=== PATIENT | female | born 1975 | race Caucasian/White ===

== ENCOUNTER → 2022-01-20 | Outpatient (CLI) | payer OTHER | LOC: ORTHO 13:38 | PROVIDERS: ATTEND Orthopaedic Surgery | DX: M17.12 Unilateral primary osteoarthritis, left knee (principal) | CPT/HCPCS: 99203 ==

== ENCOUNTER → 2022-02-08 | Outpatient (CLI) | payer OTHER | LOC: ORTHO 13:05 | PROVIDERS: ATTEND Orthopaedic Surgery | DX: M17.12 Unilateral primary osteoarthritis, left knee (principal) | CPT/HCPCS: 20610 ==

== ENCOUNTER → 2022-03-08 | Outpatient (CLI) | payer OTHER ==
[2022-03-08 10:51] LABS: BASOPHILS # (AUTO) 0.1 10^3/uL (0.0-0.1); BASOPHILS % (AUTO) 1 % (0-10); EOSINOPHILS # (AUTO) 0.2 10^3/uL (0.0-0.3); EOSINOPHILS % (AUTO) 3 % (0-10); HEMATOCRIT 39 % (35-52); HEMOGLOBIN 13.3 g/dL (11.5-16.0); LYMPHOCYTES # (AUTO) 1.5 10^3/uL (1.0-4.0); LYMPHOCYTES % (AUTO) 28 % (12-44); MEAN CORPUSCULAR HEMOGLOBIN 30 pg (25-34); MEAN CORPUSCULAR HGB CONC 34 g/dL (32-36); MEAN CORPUSCULAR VOLUME 88 fL (80-99); MEAN PLATELET VOLUME 9.1 fL (9.0-12.2); MONOCYTES # (AUTO) 0.4 10^3/uL (0.0-1.0); MONOCYTES % (AUTO) 7 % (0-12); NEUTROPHILS # (AUTO) 3.4 10^3/uL (1.8-7.8); NEUTROPHILS % (AUTO) 62 % (42-75); PLATELET COUNT 267 10^3/uL (130-400); WHITE BLOOD COUNT 5.6 10^3/uL (4.3-11.0)
[2022-03-08 11:09] LABS: INR 0.9 (0.8-1.4)
[2022-03-08 11:12] LABS: CALCIUM 8.9 MG/DL (8.5-10.1); CREATININE SERUM 0.75 MG/DL (0.60-1.30); POTASSIUM 3.8 MMOL/L (3.6-5.0)
--- NOTE | 2022-03-08 14:07 | Diagnostic Imaging Report ---
INDICATION: Osteoarthritis, pain COMPARISON: None available TECHNIQUE: 4 radiographs of the left knee dated 03/08/2022. FINDINGS: No acute fracture or dislocation. No destructive osseous process. Mild medial joint space narrowing. Lateral compartment is well maintained. Minimal osteophytosis. No significant knee joint effusion. Probable narrowing of the lateral patellofemoral joint space, though this is not optimally visualized secondary to positioning. IMPRESSION: No acute osseous abnormality with mild degenerative changes. Dictated by: Dictated on workstation # [id number]
--- NOTE | 2022-03-08 14:31 | Diagnostic Imaging Report ---
INDICATION: Preoperative evaluation, knee pain. COMPARISON: None available. TECHNIQUE: Two radiographs of the chest dated 03/08/2022. FINDINGS: The cardiac silhouette is within normal limits in size. No significant pulmonary vascular congestion. The lungs are clear. No pleural effusion. No pneumothorax. Surgical clips within the upper abdomen. No acute osseous abnormality. IMPRESSION: No acute cardiopulmonary abnormality. Dictated by: Dictated on workstation # [id number]
== END ==
LOC: ORTHO 09:48
PROVIDERS: ATTEND Orthopaedic Surgery
DX: M17.12 Unilateral primary osteoarthritis, left knee (principal)
CPT/HCPCS: 71046; 73564; 80048; 85025; 85610; 85730; 93005; G0463; 36415; 99213

== ENCOUNTER → 2022-03-15 | Outpatient (CLI) | payer OTHER ==
[~2022-03-15] VITALS: Ht 170.2 cm; Wt 109.0 kg
[~2022-03-15] MED LIST: LEVO5TAB28 PO; THYR240T PO
== END | disposition home or self-care (01) ==
LOC: PREOP 05:44
PROVIDERS: ATTEND Orthopaedic Surgery
DX: Z01.818 Encounter for other preprocedural examination (principal)

== ENCOUNTER 2022-03-21 08:27 | Observation (INO) | payer OTHER ==
[2022-03-21] VITALS (13 sets, daily range): BP systolic 118–181; BP diastolic 66–113
[~2022-03-21] VITALS: Ht 170.2 cm; Wt 121.1 kg
[2022-03-21] MEDS ORDERED: ceFAZolin INJECTION 2,000 MG in NS (IVPB) 50 ML IV ONE (08:45)
[2022-03-21] MEDS ORDERED: SODIUM CHLORIDE 0.9% IRRIGATIO 150 ML, TRANEXAMIC ACID INJECTION 3,000 MG IR ONE ×2 (09:00)
[2022-03-21] MEDS: LACTATED RINGERS 1,000 ML IV PRN ×2 (09:11→11:16)
[2022-03-21] MEDS ORDERED: MIDAZOLAM 2 MG/2 ML (VERSED) VIAL ONE (09:22)
[2022-03-21] MEDS ORDERED: fentaNYL INJ 100 MCG/2 ML AMP ONE ×3 (09:22→12:58)
--- NOTE | 2022-03-21 09:43 | Progress Note-Pre Operative ---
Pre-Operative Progress Note Date of Available H&P: Mar 08, 2022 Date H&P Reviewed: Mar 21, 2022 Time H&P Reviewed: 09:30 History & Physical: H&P Reviewed, Patient Examed, No changes noted Pre-Operative Diagnosis: Left Knee Primary Osteoarthritis PREEIT WILLSON MD Mar 21, 2022 09:43
[2022-03-21] MEDS ORDERED: LIDOCAINE PF 2% 5 ML (XYLOCAINE) VIAL ONE (10:02)
[2022-03-21] MEDS ORDERED: ONDANSETRON 4 MG/2 ML (SDV) Z0FRAN ONE (10:02)
[2022-03-21] MEDS ORDERED: proPOfol 200 MG/20 ML (DIPRIVAN) VIAL IV ONE ×2 (10:02→10:08)
[2022-03-21] MEDS ORDERED: ROPIVACAINE 5MG/ML 30ML VIAL ONE (10:02)
[2022-03-21] MEDS ORDERED: LABETALOL HCL 20 MG/4 ML VIAL ONE ×2 (10:54→12:36)
[2022-03-21] MEDS ORDERED: SEVOFLURANE (ULTANE) 15 ML INHAL SOLN ONE (11:49)
--- NOTE | 2022-03-21 12:01 | Operative Report - Ortho ---
Operative Report Surgeon (s)/Contracts Advisor (s) Surgeon PREETI WILLSON MD Contracts Advisor n/a Pre-Operative Diagnosis Left Knee Primary Osteoarthritis Post-Operative Diagnosis same Operative Report Date of Procedure: Mar 21, 2022 Name of Procedure Performed: Left Total Knee Arthroplasty Description & Findings After obtaining informed consent and marking the patient in the preoperative holding area, the patient did receive IV antibiotics. Patient was taken to the operating room and anesthesia was induced. Surgical timeout was taken. The left lower extremity was prepped and draped in the usual sterile fashion. Incision was made and carried down to fascia. Arthrotomy was performed on the medial side of the patella. Patella was retracted laterally and knee was flexed. Found to have circumferential osteophtye around the distal femur as well as exposed bone in the medial compartment. Hole was made in the distal femur for the intramedullary distal femoral cutting guide. Resection was made then the femur was sized as a 3. 4-in-1 block for a size [address]. Anterior cut was made and there was no notch. Posterior cut was made followed by the chamfers. Box cut was performed. Lug holes were drilled. Attention was turned to the tibial side, extramedullary tibial guide was put into place and aligned with the tibial crest. It was set to take 2 mm off of the affected medial side. Drop althea was used to confirm alignment. Resection was made and was parallel to the joint line. Tibial bone block was removed. Lamina food preparation supervisor was put into place and the menisci and posterior osteophytes were removed. The knee was trialed with a size 3 femur and a size 3 tibia with a 9 mm poly trial. It was found to come out to full extension and flexed beyond 120 degrees. It was stable to varus and valgus stress throughout its range of motion. This was accepted. Knee was brought out into extension and the patella was measured and noted to be too thin for arthroplasty; osteophytes were removed from around the perimeter of the patella. Patella tracked well through the trochlear groove of the femur. Trial implants were removed. Tibial tray was pinned and punched. Tibial press fit guide was placed and holes were drilled. The cut bone surfaces were lavaged with pulsatile normal saline. Implants were opened and assembled on the back table. A size 3 press fit tibial component was impacted into place. A size 3 press fit femoral component was impacted into place. Tibial tray was lavaged with saline. A 9 mm thick polyethylene component was locked into placed and the locking mechanism was chec ked. Knee was brought into extension. Betadine soak was performed and then, the knee was irrigated with normal saline. Tranexamic acid was applied for hemostasis. The knee was once again trialed; found to come to full extension, flexed beyond 120 degrees, and was stable to varus and valgus stress. Tourniquet was dropped and electrocautery was used for hemostasis. Fascial layer was closed with #2 Stratafix. The subcutaneous layer was closed with 2-0 Vicryl. The skin was closed with a running subcuticular 3-0 V-loc. Wound was dressed with steri- strips, xeroform, 4x4s, ABD, webril, and MELISSA wrap. Patient tolerated the procedure well and was stable to the recovery room. Anesthesia Type General plus Regional Estimated Blood Loss 150 mL Specimen(s) collected/removed None PREETI WILLSON MD Mar 21, 2022 12:01
[2022-03-21] MEDS ORDERED: HYDROmorphone 2 MG/ML VIAL (DILAUDID) ONE (12:08)
[2022-03-21] MEDS ORDERED: ONDANSETRON 4 MG/2 ML (SDV) Z0FRAN IVP PRN (12:15)
[2022-03-21] MEDS ORDERED: BISACODYL 5 MG (DULCOLAX) TABLET PO PRN (12:15)
[2022-03-21] MEDS ORDERED: ONDANSETRON 4 MG/2 ML (SDV) Z0FRAN IV PRN (12:15)
[2022-03-21] MEDS ORDERED: fentaNYL INJ 100 MCG/2 ML AMP IVP ONE (12:15)
[2022-03-21] MEDS ORDERED: MILK OF MAGNESIA 400 MG/5 ML 30 ML UDC PO PRN (12:15)
[2022-03-21] MEDS ORDERED: HYDROmorphone 2 MG/ML VIAL (DILAUDID) IV ONE (12:15)
[2022-03-21] MEDS ORDERED: ACETAMINOPHEN 500 MG TAB (TYLENOL) PO PRN (12:15)
[2022-03-21] MEDS: LABETALOL HCL 20 MG/4 ML VIAL IV PRN ×4 (12:40→13:03)
--- NOTE | 2022-03-21 13:23 | Diagnostic Imaging Report ---
CLINICAL HISTORY: Postop left total knee arthroplasty. COMPARISON: 03/08/2022. TECHNIQUE: 2 views of the left knee. FINDINGS: Postsurgical changes of left total knee arthroplasty are visualized. The femoral and tibial components are well seated. No periprosthetic fracture. IMPRESSION: 1. Expected postsurgical changes of left total knee arthroplasty. Dictated by: Dictated on workstation # [id number]
--- NOTE | 2022-03-21 13:59 | Physical Therapy Progress Note ---
Therapy Progress Note PT attempted to evaluation patient, however, patient adamantly declined stating, "I'm not doing anything until I get pain medicine." PT attempted to educate patient on importance of actively participating with therapy and placing CPM to increase ROM and circulation. Patient continued to decline. RN is aware. Will attempt later today. 1 ref ALFREDITO THOMAS PT Mar 21, 2022 13:59
[2022-03-21] MEDS: HYDROmorphone 2 MG/ML VIAL (DILAUDID) IV PRN ×3 (14:12→22:26)
[2022-03-21] MEDS: NS IV 1000 ML 1,000 ML IV SCH (14:26)
--- NOTE | 2022-03-21 14:54 | Physical Therapy Evaluation ---
PT Evaluation-General Medical Diagnosis Admission Date March 21, 2022 Medical Diagnosis: left TKR Onset Date: Mar 21, 2022 Therapy Diagnosis Therapy Diagnosis: impaired mobility/weakness Precautions Precautions/Isolations: Standard Precautions Weight Bear Status Right Lower Extremity: Right Full Weight Bearing Left Lower Extremity: Left Weight Bearing/Tolerated Referral Physician: Ubaldo Reason for Referral: Evaluation/Treatment Medical History Current History s/p elective left TKR Reviewed History: Yes Social History Home: Single Level Current Living Status: Spouse Prior Prior Level of Function SCALE: Activities may be completed with or without assistive devices. 9-Tjdeeiqcbn-ejvzvik completes the activity by him/herself with no assistance from a helper. 5-Set-up or Clean-up Assistance-helper sets up or cleans up; patient completes activity. [place] assists only prior to or following the activity. 4-Supervision or Touching Assistance-helper provides verbal cues and/or touching/steadying and/or contact guard assistance as patient completes activity. Assistance may be provided throughout the activity or intermittently. 3-Partial/Moderate Assistance-helper does LESS THAN HALF the effort. [place] lifts, holds or supports trunk or limbs, but provides less than half the effort. 2-Substantial/Maximal Assistance-helper does MORE THAN HALF the effort. [place] lifts or holds trunk or limbs and provides more than half the effort. 1-Qkcabtrip-yzsfiu does ALL the effort. Patient does none of the effort to complete the activity. Or, the assistance of 2 or more helpers is required for the patient to complete the activity. If activity was not attempted, code reason: 7-Patient Refused. 9-Not Applicable-not attempted and the patient did not perform the activity before the current illness, exacerbation or injury. 10-Not Attempted due to Environmental Limitations-(lack of equipment, weather restraints, etc.). 88-Not Attempted due to Medical Conditions or Safety Concerns. Bed Mobility: 6 Transfers (B,C,W/C): 6 Gait: 6 Stairs: 6 Indoor Mobility (Ambulation): Independent Stairs: Independent Prior Devices Use: None PT Evaluation-Current Subjective Patient agrees to PT. Pain Numeric Pain Scale: 8 Location: Left Location Body Site: Knee Pain Description: Acute Objective Patient Orientation: Normal For Age Attachments: Espinal Catheter, IV ROM/Strength ROM Lower Extremities left knee flexion 70 degrees/extension 10 degrees; right LE WFL Strength Lower Extremities left LE 3-/5 grossly/right LE 4/5 Integumentary/Posture Bowel Incontinence: No Bladder Incontinence: Espinal Cath Posture WFL Neuromuscular (Tone, Coordination, Reflexes) grossly intact Sensory Vision: Functional Hearing: Functional Transfers Sit to Lying (QC): 3 Lying to Sitting/Side of Bed(Q: 3 Gait Does the Patient Walk?: No and Walking Goal IS indicated Balance Sitting Static: Normal Sitting Dynamic: Normal Assessment/Needs Patient will benefit from skilled PT to address functional strength and mobility to improve current LOF. Patient is currently limited by left knee pain. Rehab Potential: Fair PT Campus Security Officer Goals Usp Goals PT Usp Goals Time Frame: Mar 26, 2022 Roll Left & Right (QC): 6 Sit to Lying (QC): 6 Lying-Sitting on Side/Bed(QC): 6 Sit to Stand (QC): 6 Chair/Hjf-tt-Laswz Xfer(QC): 6 Toilet Transfer (QC): 6 Walk 10 feet (QC): 6 Walk 50ft with 2 Turns (QC): 6 Walk 150 ft (QC): 6 PT Plan Problem List Problem List: Activity Tolerance, Functional Strength, Safety, Balance, Gait, Transfer, Bed Mobility, ROM Treatment/Plan Treatment Plan: Continue Plan of Care Treatment Plan: Bed Mobility, Education, Functional Activity Diana, Functional Strength, Gait, Safety, Therapeutic Exercise, Transfers Treatment Duration: Mar 26, 2022 Frequency: 11 times per week Estimated Hrs Per Day: .5 hour per day Patient and/or Family Agrees t: Yes Time/GCodes Time In: 1430 Time Out: 1445 Total Billed Treatment Time: 15 Total Billed Treatment 1 visit [facility] 15 min ALFREDITO THOMAS PT Mar 21, 2022 14:54
--- NOTE | 2022-03-21 15:39 | Physical Therapy Progress Note ---
Therapy Progress Note Patient with HOB elevated upon PT arrival, nurse in the room discussing pain medication. Patient agreeable to CPM. CPM placed and adjusted to fit patients left LE length. Settings of CPM were from 0 degrees extension to 50 degrees flexion. Patient unable to tolerate 52 degrees flexion. Speed set to level 3 and time set to 2 hours. GASTROINTESTINAL TECHNICIAN in the room upon application of the CPM. Patient agreeable to settings and has call light in reach, in the room upon PT departure. Patient was advised to use the CPM 2 hours, 3-4 times daily. KIRSTIN MEDRANO PT Mar 21, 2022 15:39
[2022-03-21] MEDS ORDERED: ROPI0.253 PO (16:05)
[2022-03-21] MEDS: ASPIRIN E.C. 81 MG (ECOTRIN) TAB PO SCH (18:43)
[2022-03-21] MEDS ORDERED: FLU QUADRIvalent (6 months+) 60 mcg/0.5 ml 2022-23 (Fluzone) IM ONE (19:45)
[2022-03-21] MEDS ORDERED: ceFAZolin INJECTION 2,000 MG in NS (IVPB) 50 ML IV SCH (21:00)
[2022-03-21] MEDS: ceFAZolin INJECTION 2,000 MG in NS (IVPB) 50 ML IV SCH (22:18)
[2022-03-21] MEDS: DOCUSATE SODIUM 100 MG (COLACE) CAP PO SCH (22:18)
[2022-03-21] MEDS: rOPINIRole 0.25 MG (REQUIP) TAB PO SCH (22:19)
[2022-03-21] MEDS: CELECOXIB 100 MG (CeleBREX) CAP PO SCH (22:19)
[2022-03-22] VITALS (7 sets, daily range): BP systolic 94–152; BP diastolic 52–81
[2022-03-22] MEDS: NS IV 1000 ML 1,000 ML IV SCH (00:51)
[2022-03-22] MEDS: HYDROmorphone 2 MG/ML VIAL (DILAUDID) IV PRN ×5 (03:43→17:10)
[2022-03-22] MEDS: ceFAZolin INJECTION 2,000 MG in NS (IVPB) 50 ML IV SCH (04:01)
[2022-03-22 05:53] LABS: HEMOGLOBIN 12.9 g/dL (11.5-16.0)
[2022-03-22] MEDS: MULTIVIT W/MINERALS TAB (THERAGRAN M) PO SCH (06:09)
--- NOTE | 2022-03-22 08:23 | Progress Note - Ortho ---
Progress Note Subjective Date of Exam 03/22/22 Chief Complaint POD #1 L TKA HPI/Events since last exam having difficulty with pain, block wore off early this AM Review of Systems - Allergies: Coded Allergies: erythromycin base (Unverified Allergy, Unknown, 03/15/22) morphine (Unverified Allergy, Unknown, 03/15/22) Home Meds Reported Medications Ropinirole HCl (Ropinirole HCl) 0.25 Mg Tablet, 0.25 MG PO HS, TAB 03/21/22 Levocetirizine Dihydrochloride (Xyzal) 5 Mg Tablet, 5 MG PO DAILY, TAB 03/15/22 Thyroid,Pork (Th[place]ton Thyroid) 240 Mg Tablet, 240 MG PO DAILY, TAB 03/15/22 Objective Exam L Knee: Dressing C/D/I, +DF of ankle, no s/s of DVT Vital Signs Vital Signs Date Time Temp Pulse Resp B/P (MAP) Pulse Ox O2 Delivery O2 Flow Rate FiO2 03/22/22 08:00 37.1 101 18 151/81 (104) 95 Room Air 03/22/22 04:24 37.5 99 16 146/78 (100) 98 Room Air 03/22/22 00:47 37.7 99 16 143/74 (97) 94 Room Air 03/21/22 19:03 37.6 97 18 134/66 (88) 96 Room Air 8.00 03/21/22 18:48 Room Air 03/21/22 16:00 37.5 95 20 146/81 (102) 97 Room Air 03/21/22 13:10 36.3 11 151/81 (104) 94 Room Air 03/21/22 13:10 Room Air 03/21/22 13:00 14 176/108 (130) 97 Room Air 03/21/22 12:56 16 181/107 (131) 97 Room Air 03/21/22 12:55 Room Air 03/21/22 12:50 15 176/106 (129) 95 Room Air 03/21/22 12:44 13 96 Room Air 03/21/22 12:40 36.3 19 171/101 (124) 100 Room Air 03/21/22 12:40 Room Air 03/21/22 12:30 15 174/108 (130) 100 OxyMask 8.00 03/21/22 12:25 OxyMask 3.00 03/21/22 12:20 16 163/113 (130) 100 OxyMask 8.00 03/21/22 12:10 9 164/102 (122) 100 OxyMask 8.00 03/21/22 12:10 OxyMask 8.00 03/21/22 12:00 19 131/87 (102) 97 OxyMask 8.00 03/21/22 12:00 36.6 86 18 140/76 (97) 96 Room Air 03/21/22 11:53 36.2 16 118/78 (91) 96 OxyMask 8.00 03/21/22 11:53 OxyMask 8.00 03/21/22 09:19 36.4 84 18 139/87 (104) 97 Room Air I & O 03/22/22 07:00 Intake Total 2690 ml Output Total 3370 ml Balance -680 ml Lab Results Laboratory Tests 03/22/22 05:20: Hemoglobin 12.9, Hematocrit 39 Imaging 2 postop views of the left knee demonstrated total knee arthroplasty with the components in good position Assessment and Plan Assessment Left Knee Primary OA s/p L TKA Problem List Left Knee Primary OA s/p L TKA Plan PT/OT DVT Prophylaxis Pain Control Final Diagonsis Left Knee Primary OA s/p L TKA Level of the visit: Level 3 (postop) PREETI WILLSON MD Mar 22, 2022 08:23
[2022-03-22] MEDS: THYROID (ARMOUR) 60 MG TABLET PO SCH (08:38)
[2022-03-22] MEDS: DOCUSATE SODIUM 100 MG (COLACE) CAP PO SCH ×2 (08:38→21:17)
[2022-03-22] MEDS: ASPIRIN E.C. 81 MG (ECOTRIN) TAB PO SCH ×2 (08:38→17:10)
[2022-03-22] MEDS: LORATADINE (CLARITIN) 10 MG TAB PO SCH (08:38)
[2022-03-22] MEDS: CELECOXIB 100 MG (CeleBREX) CAP PO SCH ×2 (08:38→21:17)
[2022-03-22] MEDS: CYCLOBENZAPRINE 10 MG (FLEXERIL) TAB PO PRN ×3 (08:42→21:17)
[2022-03-22] MEDS: KETOROLAC 30 MG/ML VIAL IVP PRN ×3 (08:42→21:17)
[2022-03-22] MEDS ORDERED: LEVOCETIRIZINE DIHYDROCHLORIDE 5 MG PO SCH (09:00)
[2022-03-22] MEDS ORDERED: THYROID PORK 240 MG PO SCH (09:00)
--- NOTE | 2022-03-22 09:58 | Anesthesia-General Post-Op ---
General Patient Condition Mental Status/LOC: Same as Preop Cardiovascular: Satisfactory Nausea/Vomiting: Absent Respiratory: Satisfactory Pain: Controlled Complications: Absent Post Op Complications Complications None Follow Up Care/Instructions Patient Instructions None needed. Anesthesia/Patient Condition Patient Condition Patient is doing well, no complaints, stable vital signs, no apparent adverse anesthesia problems. No complications reported per nursing. MAYTE CSHNEIDER CRNA Mar 22, 2022 09:58
--- NOTE | 2022-03-22 10:08 | Physical Therapy Daily Note ---
PT Daily Note-Current Subjective Patient agrees to PT. Rates left knee pain 10/10. Dr. Conner in for assessment Pain Numeric Pain Scale: 10-Worst Possible Pain Location: Left Location Body Site: Knee Pain Description: Acute Section J - Health Conditions 1. Rarely or not at all 2. Occasionally 3. Frequently 4. Almost constantly 8. Unable to answer Pain Effect on Sleep: 4 Pain Interference with Therapy: 4 Pain Interference w/Day-to-Day: 4 Mental Status Patient Orientation: Normal For Age Attachments: IV Transfers SCALE: Activities may be completed with or without assistive devices. 6-[place]-odehrlf completes the activity by him/herself with no assistance from a helper. 5-Set-up or Clean-up Assistance-helper sets up or cleans up; patient completes activity. [place] assists only prior to or following the activity. 4-Supervision or Touching Assistance-helper provides verbal cues and/or touching/steadying and/or contact guard assistance as patient completes activity. Assistance may be provided throughout the activity or intermittently. 3-Partial/Moderate Assistance-helper does LESS THAN HALF the effort. [place] lifts, holds or supports trunk or limbs, but provides less than half the effort. 2-Substantial/Maximal Assistance-helper does MORE THAN HALF the effort. [place] lifts or holds trunk or limbs and provides more than half the effort. 0-Pvzssmkbu-xydrcu does ALL the effort. Patient does none of the effort to complete the activity. Or, the assistance of 2 or more helpers is required for the patient to complete the activity. If activity was not attempted, code reason: 7-Patient Refused. 9-Not Applicable-not attempted and the patient did not perform the activity before the current illness, exacerbation or injury. 10-Not Attempted due to Environmental Limitations-(lack of equipment, weather restraints, etc.). 88-Not Attempted due to Medical Conditions or Safety Concerns. Lying to Sitting/Side of Bed(Q: 4 Sit to Stand (QC): 4 Chair/Rye-my-Yaqoy Xfer(QC): 4 Toilet Transfer (QC): 4 Weight Bearing Right Lower Extremity: Right Full Weight Bearing Left Lower Extremity: Left Weight Bearing/Tolerated Gait Training Distance: 50' Walk 10 feet (QC): 4 Walk 50 ft with 2 Turns(QC): 4 Gait Assistive Device: FWW very slow, antalgic gait sequence Exercises Supine Ex: Ankle pumps, Quad Set, Heel Slides, Straight leg raise Supine Reps: 15 (AAROM (lacks 30 degrees extension due to pain)) Seated Therapy Exercises: Long arc quads Seated Reps: 15 Assessment Patient appears to self limit due to left knee pain. is aware of uncontrolled left knee pain. PT educated patient on importance of actively performing exercises PRN to increase ROM and activity. Patient and spouse voiced understanding. PT Electronic Parts Designer Goals Electronic Parts Designer Goals PT Mcc Goals Time Frame: Mar 26, 2022 Roll Left & Right (QC): 6 Sit to Lying (QC): 6 Lying-Sitting on Side/Bed(QC): 6 Sit to Stand (QC): 6 Chair/Hbc-kf-Kelep Xfer(QC): 6 Toilet Transfer (QC): 6 Walk 10 feet (QC): 6 Walk 50ft with 2 Turns (QC): 6 Walk 150 ft (QC): 6 PT Plan Treatment/Plan Treatment Plan: Continue Plan of Care Treatment Plan: Bed Mobility, Education, Functional Activity Diana, Functional Strength, Gait, Safety, Therapeutic Exercise, Transfers Treatment Duration: Mar 26, 2022 Frequency: 11 times per week Estimated Hrs Per Day: .5 hour per day Patient and/or Family Agrees t: Yes Time Time In: 800 Time Out: 832 Total Billed Treatment Time: 32 Total Billed Treatment 1 visit EX 18 min GT 14 min ALFREDITO THOMAS PT Mar 22, 2022 10:08
--- NOTE | 2022-03-22 11:29 | Occupational Therapy Eval ---
OT Evaluation-General/PLF Medical Diagnosis Admission Date Medical Diagnosis: left TKR Onset Date: Mar 21, 2022 Therapy Diagnosis Therapy Diagnosis: decreased ADL status Precautions Precautions/Isolations: Fall Prevention, Standard Precautions Referral Physician: Ubaldo Referral Reason: Evaluation/Treatment Medical History Current History s/p L TKA 03/22/22 Social History Home: Single Level Current Living Status: Spouse ADL-Prior Level of Function SCALE: Activities may be completed with or without assistive devices. 1-Pwgxfvuutq-audtdal completes the activity by him/herself with no assistance from a helper. 5-Set-up or Clean-up Assistance-helper sets up or cleans up; patient completes activity. [place] assists only prior to or following the activity. 4-Supervision or Touching Assistance-helper provides verbal cues and/or touching/steadying and/or contact guard assistance as patient completes activity. Assistance may be provided throughout the activity or intermittently. 3-Partial/Moderate Assistance-helper does LESS THAN HALF the effort. [place] lifts, holds or supports trunk or limbs, but provides less than half the effort. 2-Substantial/Maximal Assistance-helper does MORE THAN HALF the effort. [place] lifts or holds trunk or limbs and provides more than half the effort. 7-Fvddrnkrc-jaxqio does ALL the effort. Patient does none of the effort to complete the activity. Or, the assistance of 2 or more helpers is required for the patient to complete the activity. If activity was not attempted, code reason: 7-Patient Refused. 9-Not Applicable-not attempted and the patient did not perform the activity before the current illness, exacerbation or injury. 10-Not Attempted due to Environmental Limitations-(lack of equipment, weather restraints, etc.). 88-Not Attempted due to Medical Conditions or Safety Concerns. ADL PLOF Comments Pt reports IND with ADLs and functional mobility at [facility]. 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 Self Care: Independent Functional Cognition: Independent OT Current Status Subjective Pt in recliner, agreeable to OT tx. Mental Status/Objective Patient Orientation: Person, Place, Time, Situation Attachments: IV Current Upper Extremity ROM WFL Upper Extremity Strength WFL ADL-Treatment Eating (QC): 6 Oral Hygiene (QC): 6 Lower Body Dressing (QC): 2 On/Off Footwear (QC): 1 Toileting Hygiene (QC): 6 Other Treatments Pt in recliner, provided information about PLOF and home set up. Pt requests to use toilet, able to use FWW to transfer into bathroom to complete toileting independently. Pt then stood at sink to wash hands independently. Pt used FWW to perform functional mobility around room, into hallway, and back to recliner. Pt states her assisted her with footwear and LE dressing today and he will be able to assist her with this at home. Post tx, pt in recliner, call light in reach and all needs met. Education OT Patient Education: Correct positioning, Modified ADL techniques, Progress toward Goal/Update tx plan, Purpose of tx/functional activities Teaching Recipient: Patient Teaching Methods: Discussion Response to Teaching: Verbalize Understanding OT Vp Goals Vp Goals 1=Demonstrate adherence to instructed precautions during ADL tasks. 2=Patient will verbalize/demonstrate understanding of assistive devic es/modifications for ADL. 3=Patient will improve strength/tolerance for activity to enable patient to perform ADL's. OT Education/Plan Problem List/Assessment Assessment: No Skilled OT Needs ID'd No skilled OT services indicated at this time, as pt is at her PLOF with all ADLs except LBD. Pt states will assist her with this at home, and declines further OT services at this time. D/C from OT services at this time per pt request. Discharge Recommendations Plan/Recommendations: Discharge/Goals Met Treatment Plan/Plan of Care Patient would benefit from OT for education, treatment and training to promote independence in ADL's, mobility, safety and/or upper extremity function for ADL's. Plan of Care: ADL Retraining, Functional Mobility Treatment Duration: Mar 22, 2022 Frequency: 1 time per week (eval only) Estimated Hrs Per Day: .25 hour per day Rehab Potential: Fair Time/GCodes Start Time: 10:55 Stop Time: 11:20 Total Time Billed (hr/min): 25 Billed Treatment Time 1, EVL (10'), ADL (15') ERIC BURTON OT Mar 22, 2022 11:29
--- NOTE | 2022-03-22 14:15 | Physical Therapy Daily Note ---
PT Daily Note-Current Subjective Patient reports left knee pain is controlled at this time. Pain Numeric Pain Scale: 5-Moderate Pain Location: Left Location Body Site: Knee Pain Description: Acute Section J - Health Conditions 1. Rarely or not at all 2. Occasionally 3. Frequently 4. Almost constantly 8. Unable to answer Pain Effect on Sleep: 3 Pain Interference with Therapy: 3 Pain Interference w/Day-to-Day: 3 Transfers SCALE: Activities may be completed with or without assistive devices. 4-Lplqtitimj-paaubus completes the activity by him/herself with no assistance from a helper. 5-Set-up or Clean-up Assistance-helper sets up or cleans up; patient completes activity. [place] assists only prior to or following the activity. 4-Supervision or Touching Assistance-helper provides verbal cues and/or touching/steadying and/or contact guard assistance as patient completes activity. Assistance may be provided throughout the activity or intermittently. 3-Partial/Moderate Assistance-helper does LESS THAN HALF the effort. [place] lifts, holds or supports trunk or limbs, but provides less than half the effort. 2-Substantial/Maximal Assistance-helper does MORE THAN HALF the effort. [place] lifts or holds trunk or limbs and provides more than half the effort. 2-Kpnxixtdv-biuggg does ALL the effort. Patient does none of the effort to complete the activity. Or, the assistance of 2 or more helpers is required for the patient to complete the activity. If activity was not attempted, code reason: 7-Patient Refused. 9-Not Applicable-not attempted and the patient did not perform the activity before the current illness, exacerbation or injury. 10-Not Attempted due to Environmental Limitations-(lack of equipment, weather restraints, etc.). 88-Not Attempted due to Medical Conditions or Safety Concerns. Sit to Stand (QC): 6 Weight Bearing Right Lower Extremity: Right Full Weight Bearing Left Lower Extremity: Left Weight Bearing/Tolerated Gait Training Distance: 225' Walk 10 feet (QC): 5 Walk 50 ft with 2 Turns(QC): 5 Walk 150 ft (QC): 5 Gait Assistive Device: FWW much improved gait sequence/antalgic, reciprocal pattern Exercises Seated Therapy Exercises: Ankle pumps, Long arc quads Seated Reps: 15 Assessment Patient requires time and encouragement to complete exercises due to left knee pain. Patient does report pain is more controlled. PT to increase activity as tolerated by patient and patient to dismiss to home tomorrow after PT. PT Circular Ripsaw Operator Goals Circular Ripsaw Operator Goals PT Senior Living Goals Time Frame: Mar 26, 2022 Roll Left & Right (QC): 6 Sit to Lying (QC): 6 Lying-Sitting on Side/Bed(QC): 6 Sit to Stand (QC): 6 Chair/Pod-xo-Yrgnl Xfer(QC): 6 Toilet Transfer (QC): 6 Walk 10 feet (QC): 6 Walk 50ft with 2 Turns (QC): 6 Walk 150 ft (QC): 6 PT Plan Treatment/Plan Treatment Plan: Continue Plan of Care Treatment Plan: Bed Mobility, Education, Functional Activity Diana, Functional Strength, Gait, Safety, Therapeutic Exercise, Transfers Treatment Duration: Mar 26, 2022 Frequency: 11 times per week Estimated Hrs Per Day: .5 hour per day Patient and/or Family Agrees t: Yes Time Time In: 1315 Time Out: 1338 Total Billed Treatment Time: 23 Total Billed Treatment 1 visit EX 8 min GT 15 min ALFREDITO THOMAS PT Mar 22, 2022 14:15
[2022-03-22] MEDS: rOPINIRole 0.25 MG (REQUIP) TAB PO SCH (21:17)
[2022-03-23 00:04] VITALS: BP 120/70
[2022-03-23 03:20] VITALS: BP 121/65
[2022-03-23] MEDS: CYCLOBENZAPRINE 10 MG (FLEXERIL) TAB PO PRN ×2 (03:21→12:10)
[2022-03-23] MEDS: KETOROLAC 30 MG/ML VIAL IVP PRN ×2 (03:22→12:09)
[2022-03-23] MEDS: MULTIVIT W/MINERALS TAB (THERAGRAN M) PO SCH (06:01)
[2022-03-23 06:12] LABS: HEMOGLOBIN 11.3 g/dL (11.5-16.0)
[2022-03-23] MEDS: HYDROmorphone 2 MG/ML VIAL (DILAUDID) IV PRN (08:19)
[2022-03-23] MEDS: DOCUSATE SODIUM 100 MG (COLACE) CAP PO SCH (08:19)
[2022-03-23] MEDS: CELECOXIB 100 MG (CeleBREX) CAP PO SCH (08:20)
[2022-03-23] MEDS: THYROID (ARMOUR) 60 MG TABLET PO SCH (08:20)
[2022-03-23] MEDS: LORATADINE (CLARITIN) 10 MG TAB PO SCH (08:20)
[2022-03-23] MEDS: ASPIRIN E.C. 81 MG (ECOTRIN) TAB PO SCH (08:20)
[2022-03-23 08:21] VITALS: BP 133/85
--- NOTE | 2022-03-23 10:27 | Physical Therapy Daily Note ---
PT Daily Note-Current Subjective Pt. agrees to Rx stating she feels confident she can manage at home and hopes to go home today. at bedside and supportive. Pt. c/o pain at 8/10 however her functional mobility and laughter dont align with that high pain c/o Pain Numeric Pain Scale: 8 Location: Left Location Body Site: Knee Pain Description: Throbbing Section J - Health Conditions 1. Rarely or not at all 2. Occasionally 3. Frequently 4. Almost constantly 8. Unable to answer Pain Effect on Sleep: 1 Pain Interference with Therapy: 1 Pain Interference w/Day-to-Day: 2 Mental Status Patient Orientation: Normal For Age Attachments: Other-See Comments (polar pack) Transfers SCALE: Activities may be completed with or without assistive devices. 2-Nfjoelgttx-xlzdwml completes the activity by him/herself with no assistance from a helper. 5-Set-up or Clean-up Assistance-helper sets up or cleans up; patient completes activity. [place] assists only prior to or following the activity. 4-Supervision or Touching Assistance-helper provides verbal cues and/or touching/steadying and/or contact guard assistance as patient completes activity. Assistance may be provided throughout the activity or intermittently. 3-Partial/Moderate Assistance-helper does LESS THAN HALF the effort. [place] lifts, holds or supports trunk or limbs, but provides less than half the effort. 2-Substantial/Maximal Assistance-helper does MORE THAN HALF the effort. [place] lifts or holds trunk or limbs and provides more than half the effort. 2-Rmzezxjup-igpccg does ALL the effort. Patient does none of the effort to complete the activity. Or, the assistance of 2 or more helpers is required for the patient to complete the activity. If activity was not attempted, code reason: 7-Patient Refused. 9-Not Applicable-not attempted and the patient did not perform the activity before the current illness, exacerbation or injury. 10-Not Attempted due to Environmental Limitations-(lack of equipment, weather restraints, etc.). 88-Not Attempted due to Medical Conditions or Safety Concerns. Roll Left & Right (QC): 6 Sit to Lying (QC): 4 Lying to Sitting/Side of Bed(Q: 6 Sit to Stand (QC): 6 Chair/Zzz-ug-Hefcr Xfer(QC): 6 Toilet Transfer (QC): 6 Weight Bearing Right Lower Extremity: Right Full Weight Bearing Left Lower Extremity: Left Weight Bearing/Tolerated Gait Training Does the Patient Walk?: Yes Walk 10 feet (QC): 6 Walk 50 ft with 2 Turns(QC): 6 Walk 150 ft (QC): 6 Gait Persons Needed: 0 Gait Assistive Device: FWW pt. states she will want to progress to crutches as as she can, used them just prior to this, pt. was trained in equal step length, step through and did fine Stair Training pt. uses crutches at home on steps as she does not have rails, assists pt as well, talked through the sequence with good understanding Exercises Supine Ex: Ankle pumps, Quad Set, Heel Slides, Straight leg raise (assisted left) Supine Reps: 15 Seated Therapy Exercises: Ankle pumps, Sit to stand, Hamstring Curls Seated Reps: 12 Treatments as above, in for Rx during gait and then after, removed outer dressing to observe very clean incision and butterflys, pt, to be DCd to home with instruction Assessment Current Status: Good Progress 10 to 80 deg active ROM PT Acquisition Lead Goals Acquisition Lead Goals PT Prison Goals Time Frame: Mar 26, 2022 Roll Left & Right (QC): 6 Sit to Lying (QC): 6 Lying-Sitting on Side/Bed(QC): 6 Sit to Stand (QC): 6 Chair/Juk-qx-Qrgdm Xfer(QC): 6 Toilet Transfer (QC): 6 Walk 10 feet (QC): 6 Walk 50ft with 2 Turns (QC): 6 Walk 150 ft (QC): 6 PT Plan Treatment/Plan Treatment Plan: Continue Plan of Care Treatment Plan: Bed Mobility, Education, Functional Activity Diana, Functional Strength, Gait, Safety, Therapeutic Exercise, Transfers Treatment Duration: Mar 26, 2022 Frequency: 11 times per week Estimated Hrs Per Day: .5 hour per day Patient and/or Family Agrees t: Yes Safety Risks/Education Patient Education: Gait Training, Transfer Techniques, Correct Positioning, Disease Process, Safety Issues Teaching Recipient: Patient Teaching Methods: Demonstration, Discussion Response to Teaching: Verbalize Understanding, Return Demonstration, Rein forcement Needed Time Time In: 955 Time Out: 1020 Total Billed Treatment Time: 25 Total Billed Treatment 1,GT13m,EX12m JUNAID GONZALEZ PAPER PRODUCTS MACHINE OPERATOR Mar 23, 2022 10:27
--- NOTE | 2022-03-23 10:40 | Physical Therapy Daily Note ---
PT Daily Note-Current Subjective Pt. and present, pt. c/o pain at 8/10 however her functional mob and presentation dont appear to coincide with that level of pain. Pt. expresses she feels ready to go home. Pain Numeric Pain Scale: 8 Location: Left Location Body Site: Knee Pain Description: Stabbing Section J - Health Conditions 1. Rarely or not at all 2. Occasionally 3. Frequently 4. Almost constantly 8. Unable to answer Pain Effect on Sleep: 1 Pain Interference with Therapy: 1 Pain Interference w/Day-to-Day: 2 Mental Status Patient Orientation: Normal For Age Attachments: Other-See Comments (polar pack) Transfers SCALE: Activities may be completed with or without assistive devices. 8-Zllsxriicx-uaoevqk completes the activity by him/herself with no assistance from a helper. 5-Set-up or Clean-up Assistance-helper sets up or cleans up; patient completes activity. [place] assists only prior to or following the activity. 4-Supervision or Touching Assistance-helper provides verbal cues and/or touching/steadying and/or contact guard assistance as patient completes activity . Assistance may be provided throughout the activity or intermittently. 3-Partial/Moderate Assistance-helper does LESS THAN HALF the effort. [place] lifts, holds or supports trunk or limbs, but provides less than half the effort. 2-Substantial/Maximal Assistance-helper does MORE THAN HALF the effort. [place] lifts or holds trunk or limbs and provides more than half the effort. 5-Qybgkkehw-skojdi does ALL the effort. Patient does none of the effort to complete the activity. Or, the assistance of 2 or more helpers is required for the patient to complete the activity. If activity was not attempted, code reason: 7-Patient Refused. 9-Not Applicable-not attempted and the patient did not perform the activity before the current illness, exacerbation or injury. 10-Not Attempted due to Environmental Limitations-(lack of equipment, weather restraints, etc.). 88-Not Attempted due to Medical Conditions or Safety Concerns. Roll Left & Right (QC): 6 Sit to Lying (QC): 4 Lying to Sitting/Side of Bed(Q: 6 Sit to Stand (QC): 6 Chair/Whg-nc-Mvpri Xfer(QC): 6 Toilet Transfer (QC): 6 Weight Bearing Right Lower Extremity: Right Full Weight Bearing Left Lower Extremity: Left Weight Bearing/Tolerated Gait Training Does the Patient Walk?: Yes Walk 10 feet (QC): 6 Walk 50 ft with 2 Turns(QC): 6 Walk 150 ft (QC): 6 Gait Persons Needed: 0 Gait Assistive Device: FWW no LOB, instructed in equal step length and step through pattern with good results Stair Training pt. and assure they can do this and have several times with crutches , pt. declines trial of this Exercises Supine Ex: Ankle pumps, Quad Set, Heel Slides, Short Arc Quads, Straight leg raise (assisted) Supine Reps: 15 Seated Therapy Exercises: Ankle pumps, Sit to stand, Hamstring Curls Seated Reps: 15 Treatments as above, gait, TRFs, therx, Dr Conner visits during rx to observe gait and undresses incision to reveal clean incision , instructions and discussion regarding DC Assessment Current Status: Good Progress meets goals PT Prison Goals Prison Goals PT Prison Goals Time Frame: Mar 26, 2022 Roll Left & Right (QC): 6 Sit to Lying (QC): 6 Lying-Sitting on Side/Bed(QC): 6 Sit to Stand (QC): 6 Chair/Xct-uz-Ltxcn Xfer(QC): 6 Toilet Transfer (QC): 6 Walk 10 feet (QC): 6 Walk 50ft with 2 Turns (QC): 6 Walk 150 ft (QC): 6 PT Plan Treatment/Plan Treatment Plan: Continue Plan of Care Treatment Plan: Bed Mobility, Education, Functional Activity Diana, Functional Strength, Gait, Safety, Therapeutic Exercise, Transfers Treatment Duration: Mar 26, 2022 Frequency: 11 times per week Estimated Hrs Per Day: .5 hour per day Patient and/or Family Agrees t: Yes Safety Risks/Education Patient Education: Gait Training, Transfer Techniques, Reviewed Use of Ice, Correct Positioning, Disease Process, Safety Issues Teaching Recipient: Patient Teaching Methods: Demonstration, Discussion Response to Teaching: Verbalize Understanding, Return Demonstration, Reinforcement Needed Time Time In: 955 Time Out: 1020 Total Billed Treatment Time: 25 Total Billed Treatment 1,GT13m,EX12m JUNAID GONZALEZ CLIENT PARTNER Mar 23, 2022 10:40
[2022-03-23] MEDS ORDERED: OXC5T PO (11:47)
[2022-03-23] MEDS ORDERED: ASPI-1238 PO (11:47)
[2022-03-23] MEDS ORDERED: CYCL10TA25 PO (11:47)
--- NOTE | 2022-03-23 11:50 | Discharge Summary ---
Discharge Summary Hospital Course Hospital Course Date of Admission: 03/21/22 Admission Diagnosis : Left Knee Primary Osteoarthritis Family Physician/Provider: Date of Discharge: 03/23/22 Discharge Diagnosis: [Left Knee Primary Osteoarthritis s/p TKA ] Hospital Course: [Admitted on 03/21/22 and went to the operating room for left TKA. Tolerated the procedure well and was transferred to the regular floor. On the day of surgery, she was started on mechnical DVT prophylaxis and began in room therapy. On POD #1, she began chemical DVT prophylaxis and made progress with ambulation. Pain was not well controlled and adjustments to her medication regimen were made. On POD #2, she was progressing well with therapy. Pain was controlled with oral medication and she was tolerating a regular diet. Home health therapy arrangements had been made. She was ready for discharge home with home health. ] Labs and Pending Lab Test: Laboratory Tests 03/23/22 05:29: Hemoglobin 11.3L, Hematocrit 35 Microbiology 03/21/22 MRSA Screen - Final, Complete MRSA not isolated Home Meds Active Aspirin EC (Aspirin) 81 Mg Tablet. 81 Mg PO BID WITH MEALS 14 Days Cyclobenzaprine HCl 10 Mg Tablet 10 Mg PO TID PRN 10 Days Reported Ropinirole HCl 0.25 Mg Tablet 0.25 Mg PO HS Xyzal (Levocetirizine Dihydrochloride) 5 Mg Tablet 5 Mg PO DAILY [place] Thyroid (Thyroid,Pork) 240 Mg Tablet 240 Mg PO DAILY Assessment/Pt Instructions WBAT on Left Leg with walker for assist. Dry dressing daily to incision site; keep incision site dry. Home Health Therapy for ROM/Strengthening. F/U with Dr. Conner in ~2 weeks. Discharge Physical Examination Vital Signs Vital Signs Date Time Temp Pulse Resp B/P (MAP) Pulse Ox O2 Delivery O2 Flow Rate FiO2 03/23/22 08:21 36.7 96 17 133/85 (101) 95 Room Air 03/21/22 19:03 8.00 Skin: Other (L Knee: Incision C/D/I, +DF of ankle, no s/s of DVT) Allergies: Coded Allergies: erythromycin base (Unverified Allergy, Unknown, 03/15/22) morphine (Unverified Allergy, Unknown, 03/15/22) Discharge Summary Date of Admission Mar 22, 2022 at 08:23 Date of Discharge PREETI CONNER MD Mar 23, 2022 11:50
--- NOTE | 2022-03-23 11:51 | D/C HH Face to Face Order ---
D/C Face to Face Orders Instructions for Patient Via [facility], Patient Instructions/FollowUp: WBAT on Left Leg with walker for assist. Dry dressing daily to incision site; keep incision site dry. Home Health Therapy for ROM/Strengthening. F/U with Dr. Conner in ~2 weeks. Physician to follow Patient: Rcihy Conner Discharge Diet for Home: No Restrictions Patient Data-Allergies,Ht & Wt Patient Allergies: Coded Allergies: erythromycin base (Unverified Allergy, Unknown, 03/15/22) morphine (Unverified Allergy, Unknown, 03/15/22) Home Health Need/Face to Face Date of Face to Face: Mar 23, 2022 Clinical Findings: Muscle weakness, Pain with ambulation, Unsteady gait I have seen Pt utkq-km-illb: Yes Discharged To: Home Diagnosis/Conditions: Left Knee Primary OA s/p TKA Patient is Homebound due to: Muscle weakness, Pain w/ambulation Homebound Status Due to the above stated illness, injury or surgical procedure (medical condition or diagnosis) and associated clinical findings, the patient is homebound because of his/her inability to leave home except with aid of a supportive device and/or person AND leaving the home requires a considerable and taxing effort or is medically contraindicated. Pt req the following assistanc: Walker Home Health Nursing Orders Home Health Services Order: Physical Therapy-Evaluate & Treat Home Health Infusion Therapy Line Start Date: Mar 21, 2022 Therapy Orders Therapy Orders: Physical Therapy Therapy Specific Orders: Gait training, Increase strength/endurance, Restore ROM Certify Stmt I certify that this patient is under my care and that I, a nurse practitioner or a physician; a assistant track coach working with me, had a face to face encounter that - meets the physician face to face encounter requirements with this patient as dated. RICHY CONNER MD Mar 23, 2022 11:51
== END 2022-03-23 11:50 | disposition home or self-care (01) ==
LOC: SDC 08:27 → EDSTATUS 09:30 → 4TH 13:35 → SDC 13:35 → 4TH 13:35 → UNDOADMOB 03-22 08:23 → SDC 03-22 15:38 → 4TH 03-22 15:38 → UNDODISOB 03-23 13:30
PROVIDERS: ADMIT Orthopaedic Surgery; ATTEND Orthopaedic Surgery
DX: M17.12 Unilateral primary osteoarthritis, left knee (principal); E66.9 Obesity, unspecified; Z68.38 Body mass index [BMI] 38.0-38.9, adult; Z79.82 Long term (current) use of aspirin
CPT/HCPCS: 27447; 73560; 85014 ×2; 85018 ×2; 87081; 96361; 96366; 96375; 96376 ×3; 97110 ×2; 97116 ×2; 97162; 97165; 97535; C1776 ×3; G0008; G0378; G0379; 36415; 90471; 90686

== ENCOUNTER → 2022-04-05 | Outpatient (CLI) | payer OTHER ==
[~2022-04-05] MED LIST changes: +ASPI-1238 PO; +CYCL10TA25 PO; +OXC5T PO; +ROPI0.253 PO
== END ==
LOC: ORTHO 08:36
PROVIDERS: ATTEND Orthopaedic Surgery
DX: Z47.89 Encounter for other orthopedic aftercare (principal)

== ENCOUNTER → 2022-05-03 | Outpatient (CLI) | payer OTHER ==
--- NOTE | 2022-05-03 17:03 | Diagnostic Imaging Report ---
INDICATION: Left knee pain. COMPARISON: 03/21/2022. FINDINGS: 2 views. Total arthroplasty present. Components are all in good alignment. There is no evidence of hardware loosening. No osteolytic changes. No cortical fractures. IMPRESSION: Stable appearing arthroplasty of the left knee. Dictated by: Dictated on workstation # [id number]
== END ==
LOC: ORTHO 11:52
PROVIDERS: ATTEND Orthopaedic Surgery
DX: Z96.652 Presence of left artificial knee joint (principal)
CPT/HCPCS: 73560

== ENCOUNTER → 2022-06-02 | Outpatient (CLI) | payer OTHER ==
--- NOTE | 2022-06-02 15:08 | Diagnostic Imaging Report ---
INDICATION: Left calf pain. Status post previous knee replacement COMPARISON: None TECHNIQUE: Duplex, franks-scale and color-flow imaging of the left lower extremity venous system was performed. FINDINGS: The common femoral vein, superficial femoral vein, profunda femoris, and popliteal veins are normal. These vessels show normal compressibility, color flow, and doppler augmentation. The deep calf veins, although not very well seen, demonstrate no distinct intraluminal thrombus. Bilobed Nelson's cyst is noted. It measures 1.7 x 2.8 x 2.3 cm. IMPRESSION: 1. No evidence of left lower extremity DVT. 2. Nelson's cyst. Dictated by: Dictated on workstation # [id number]
== END ==
LOC: RAD 13:45
PROVIDERS: ATTEND Orthopaedic Surgery
DX: M71.22 Synovial cyst of popliteal space [Baker], left knee (principal); Z96.652 Presence of left artificial knee joint

== ENCOUNTER → 2022-06-02 | Outpatient (CLI) | payer OTHER | LOC: ORTHO 11:40 | PROVIDERS: ATTEND Orthopaedic Surgery | DX: Z47.89 Encounter for other orthopedic aftercare (principal); M79.662 Pain in left lower leg ==

== ENCOUNTER → 2022-06-14 | Outpatient (CLI) | payer OTHER | LOC: ORTHO 09:17 | PROVIDERS: ATTEND Orthopaedic Surgery | DX: Z09 Encounter for follow-up examination after completed treatment for conditions other than malignant neoplasm (principal) ==

== ENCOUNTER → 2022-07-12 | Outpatient (CLI) | payer OTHER ==
--- NOTE | 2022-07-12 11:59 | Diagnostic Imaging Report ---
EXAMINATION: Left knee radiographs, 3 views. COMPARISON: None. HISTORY: 47-year-old female, left knee pain. FINDINGS: There is a left constrained knee prosthesis. There is no identified patellar component. There is no periprosthetic lucency. There is likely a small knee joint effusion. There is no identified acute fracture. IMPRESSION: 1. Intact left knee prosthesis without identified complication. 2. Probable small left knee joint effusion. 3. No acute fracture or other acute osseous abnormality. Dictated by: Dictated on workstation # [id number]
--- NOTE | 2022-07-12 16:08 | Diagnostic Imaging Report ---
LUMBOSACRAL SPINE 4 VIEWS OR > INDICATION: Back pain COMPARISON: None available. TECHNIQUE: 5 total views (AP spine, coned-down lateral, lateral, lateral flexion and lateral extension). FINDINGS: In neutral position, there is no spondylolisthesis. With flexion and extension, there is no dynamic instability. Vertebral bodies are normal in stature without ankylosis. No compression deformities. Mild degenerative disc disease in the upper lumbar spine. Cholecystectomy clips are noted. The SI joints are normal. IMPRESSION: 1. No spondylolisthesis or dynamic instability in the lumbar spine. 2. Mild degenerative disc disease. Dictated by: Dictated on workstation # [id number]
== END ==
LOC: ORTHO 09:42
PROVIDERS: ATTEND Orthopaedic Surgery
DX: M51.37 Other intervertebral disc degeneration, lumbosacral region (principal); M25.562 Pain in left knee; Z96.652 Presence of left artificial knee joint
CPT/HCPCS: 72110; 73562; G0463; 99213

== ENCOUNTER → 2022-08-02 | Outpatient (CLI) | payer OTHER | LOC: ORTHO 09:21 | PROVIDERS: ATTEND Orthopaedic Surgery | DX: M25.562 Pain in left knee (principal) | CPT/HCPCS: 99213 ==

== ENCOUNTER → 2022-09-01 | Outpatient (CLI) | payer OTHER | LOC: ORTHO 08:41 | PROVIDERS: ATTEND Orthopaedic Surgery | DX: M25.552 Pain in left hip (principal); Z96.652 Presence of left artificial knee joint | CPT/HCPCS: 99213 ==

== ENCOUNTER → 2022-10-12 | Outpatient (CLI) | payer OTHER | LOC: ORTHO 08:20 | PROVIDERS: ATTEND Orthopaedic Surgery | DX: M25.562 Pain in left knee (principal); Z96.652 Presence of left artificial knee joint | CPT/HCPCS: 99213 ==

== ENCOUNTER → 2022-12-20 | Outpatient (CLI) | payer OTHER | LOC: ORTHO 13:18 | PROVIDERS: ATTEND Orthopaedic Surgery | DX: M23.91 Unspecified internal derangement of right knee (principal) | CPT/HCPCS: 99213 ==

== ENCOUNTER → 2022-12-26 | Outpatient (CLI) | payer OTHER ==
[2022-12-26 14:59] LABS: CREATININE SERUM 0.82 MG/DL (0.60-1.30); POTASSIUM 3.5 MMOL/L (3.6-5.0)
== END ==
LOC: LAB 14:30
PROVIDERS: ATTEND Family Medicine
DX: E03.9 Hypothyroidism, unspecified (principal); R03.0 Elevated blood-pressure reading, without diagnosis of hypertension
CPT/HCPCS: 36415; 80048; 84481; 84482

== ENCOUNTER → 2022-12-26 | Outpatient (CLI) | payer OTHER ==
--- NOTE | 2022-12-26 12:07 | Diagnostic Imaging Report ---
EXAMINATION: Magnetic resonance imaging of the right knee without intravenous contrast DATE: December 26, 2022. COMPARISON: None. INDICATION: 47-year-old female, right knee pain. Pain when walking up stairs. TECHNIQUE: Multiplanar, multisequence non contrast enhanced MR imaging was accomplished. FINDINGS: MENISCI: There is signal in the knee joint, body, and posterior horn of the medial meniscus not meeting strict MRI criteria for diagnosis of tear. There is question of a tear of the posterior root attachment of the medial meniscus with 3 mm medial meniscal extrusion. The lateral meniscus is intact. LIGAMENTS AND TENDONS: The anterior and posterior cruciate ligaments are intact. The medial collateral ligament is intact. The iliotibial band, mid third lateral capsular ligament, fibular collateral ligament, biceps femoris tendon and conjoined tendon are intact. The quadriceps tendon and patella ligament are intact. JOINT: There are broad areas of full-thickness cartilage loss of the lateral patellar facet and median patellar ridge as well as the subjacent femoral trochlea. There is mild associated degenerative related edema. The medial and lateral compartment cartilage is without visible defect. There is no large knee joint effusion. There is no identified intra-articular body or prominent synovitis. BONE: There is no acute fracture, bone contusion, or evidence of osteonecrosis. There is mild degenerative related edema associated with the patellofemoral compartment. BURSAE AND SOFT TISSUES: No Bakers cyst. IMPRESSION: 1. Question of a tear of the posterior root attachment of the medial meniscus with 3 mm medial meniscal extrusion. Additional signal in the medial meniscus does not meet strict MRI diagnostic criteria for tear. 2. Intact lateral meniscus. 3. Intact anterior and posterior cruciate ligaments. Additional ligaments and tendons are intact. 4. Severe patellofemoral compartment arthritis without knee joint effusion. 5. No acute fracture, bone contusion, or evidence of osteonecrosis. Dictated by: Dictated on workstation # [id number]
== END ==
LOC: RAD 07:46
PROVIDERS: ATTEND Orthopaedic Surgery
DX: M17.11 Unilateral primary osteoarthritis, right knee (principal); M23.91 Unspecified internal derangement of right knee
CPT/HCPCS: 73721

== ENCOUNTER → 2023-01-03 | Outpatient (CLI) | payer OTHER | LOC: ORTHO 13:16 | PROVIDERS: ATTEND Orthopaedic Surgery | DX: M17.11 Unilateral primary osteoarthritis, right knee (principal); S83.241D Other tear of medial meniscus, current injury, right knee, subsequent encounter; X58.XXXD Exposure to other specified factors, subsequent encounter | CPT/HCPCS: 99213 ==

== ENCOUNTER 2023-02-14 11:36 | Outpatient (RCR) | payer OTHER ==
[~2023-02-14 11:36] MED LIST changes: -ROPI0.253 PO; +ROPI0.2533 PO
[2023-02-14 12:24] LABS: FREE T4 (FREE THYROXINE) 1.01 NG/DL (0.70-1.48)
== END 2023-02-25 ==
LOC: LAB 11:36
PROVIDERS: ATTEND Family Medicine
DX: E03.9 Hypothyroidism, unspecified (principal)
CPT/HCPCS: 36415; 84439; 84443; 84481; 84482

== ENCOUNTER → 2023-03-02 | Outpatient (CLI) | payer OTHER ==
--- NOTE | 2023-03-02 09:36 | Diagnostic Imaging Report ---
EXAMINATION: Left knee 3 views HISTORY: Knee pain COMPARISON: 07/12/2022 FINDINGS: There is a left total knee arthroplasty. No fracture or dislocation. No effusion. Alignment is near-anatomic. IMPRESSION: 1. Unchanged anatomic alignment of a left total knee arthroplasty. Dictated by: Dictated on workstation # [id number]
== END ==
LOC: ORTHO 08:58
PROVIDERS: ATTEND Orthopaedic Surgery
DX: M25.562 Pain in left knee (principal); Z96.652 Presence of left artificial knee joint
CPT/HCPCS: 73562; G0463; 99213

== ENCOUNTER → 2023-03-07 | Outpatient (CLI) | payer OTHER ==
[~2023-03-07] VITALS: Ht 170.2 cm; Wt 114.5 kg
== END | disposition home or self-care (01) ==
LOC: PREOP 12:16
PROVIDERS: ATTEND Orthopaedic Surgery
DX: Z01.818 Encounter for other preprocedural examination (principal)

== ENCOUNTER 2023-03-13 08:46 | Day surgery (SDC) | payer OTHER ==
[~2023-03-13] VITALS: Ht 170.2 cm; Wt 114.5 kg
[2023-03-13] VITALS (11 sets, daily range): BP systolic 109–160; BP diastolic 73–99
[2023-03-13] MEDS ORDERED: ceFAZolin INJECTION 2,000 MG in NS (IVPB) 50 ML 50 ML IV ONE (09:00)
[2023-03-13] MEDS ORDERED: MIDAZOLAM INJ 2 MG/2 ML VIAL ONE (09:14)
[2023-03-13] MEDS: LACTATED RINGERS 1,000 ML 1,000 ML IV PRN ×2 (09:25→11:45)
--- NOTE | 2023-03-13 09:33 | Progress Note-Pre Operative ---
Pre-Operative Progress Note Date of Available H&P: Mar 02, 2023 Date H&P Reviewed: Mar 13, 2023 Time H&P Reviewed: 09:25 History & Physical: H&P Reviewed, Patient Examed, No changes noted Pre-Operative Diagnosis: Left Knee Pain/Patellar Maltracking PREETI WILLSON MD Mar 13, 2023 09:33
[2023-03-13] MEDS ORDERED: BUPIVACAINE 0.5% 30 ML VIAL ONE (10:33)
--- NOTE | 2023-03-13 11:33 | Operative Report - Ortho ---
Operative Report Surgeon (s)/Geographic Information Scientist (s) Surgeon PREETI WILLSON MD Geographic Information Scientist n/a Pre-Operative Diagnosis Left Knee Pain/Patellar Maltracking/History of Total Knee Arthoplasty Post-Operative Diagnosis same Operative Report Date of Procedure: Mar 13, 2023 Name of Procedure Performed: Left Knee Patellar Arthroplasty and Open Lateral Release Description & Findings After obtaining informed consent and marking the patient in the preoperative holding area, the patient did receive IV antibiotics. Patient was taken to the operating room and anesthesia was induced. Surgical timeout was taken. The right lower extremity was prepped and draped in the usual sterile fashion. Incision was made through prior scar and carried down to fascia. Scar was released medially and laterally. Arthrotomy was performed on the medial side of the patella. Patella was retracted laterally and prior knee arthroplasty was examined and demonstrated no evidence of loosening. Patella was examined and demonstrated no full thickness defect but broad area of significant thinning, circumferential scar. Cautery was used to remove scar from the perimeter of the patella. The patella was measured at 20 mm of thickness; osteophytes were removed from around the perimeter of the patella. Patella was prepared for an inset patellar button. Patellar component tracked well other than some lateral pull. Trial implants were removed. Press fit patellar component was selected. Patella was irrigated and dried. Patellar component was clamped into place and appropriate pressure was applied to the component to seat it fully. Attention was turned to the lateral retinaculum, lateral release was performed beginning at the superior aspect of the patella and continuing down to the joint line. Patellar tracking was improved and this was accepted. Irrisept soak was performed and then, the knee was irrigated with normal saline. The knee was once again trialed; found to come to full extension, flexed beyond 120 degrees, and was stable to varus and valgus stress. Tourniquet was dropped and electrocautery was used for hemostasis. Fascial layer was closed with #1 Ethibond. The subcutaneous layer was closed with 2-0 Vicryl. The skin was closed with a running subcuticular 3-0 V-loc. Wound was dressed with steri- strips, xeroform, 4x4s, ABD, webril, and MELISSA wrap. Patient tolerated the procedure well and was stable to the recovery room. Anesthesia Type Spinal Estimated Blood Loss 100 mL Specimen(s) collected/removed None PREETI WILLSON MD Mar 13, 2023 11:33
[2023-03-13] MEDS ORDERED: BISACODYL 5 MG TABLET PO PRN (11:45)
[2023-03-13] MEDS ORDERED: NS IV 1000 ML 1,000 ML IV SCH (11:45)
[2023-03-13] MEDS ORDERED: ACETAMINOPHEN 500 MG TABLET PO PRN (11:45)
[2023-03-13] MEDS ORDERED: ONDANSETRON INJECTION 4 MG/2 ML (SDV) IV PRN (11:45)
[2023-03-13] MEDS ORDERED: MILK OF MAGNESIA 400 MG/5 ML 30 ML UDC PO PRN (11:45)
--- NOTE | 2023-03-13 12:17 | Diagnostic Imaging Report ---
KNEE, LEFT, 2 VIEWS (AP LAT) INDICATION: Follow-up after total knee arthroplasty. COMPARISON: 03/02/2023 TECHNIQUE: 2 views of left knee FINDINGS: Left total knee arthroplasty is again noted. Components are in good alignment. No fracture or osseous erosions. No knee joint effusion is appreciated. IMPRESSION: No acute osseous abnormality associated with the left total knee arthroplasty. Dictated by: Dictated on workstation # [id number]
--- NOTE | 2023-03-13 14:03 | Physical Therapy Progress Note ---
Therapy Progress Note PT to begin in a.m. due to spinal block. Patient agrees with plan. ALFREDITO THOMAS PT Mar 13, 2023 14:02
[2023-03-13] MEDS: oxyCODONE IMMEDIATE RELEASE 5 MG TABLET PO PRN ×2 (16:14→20:27)
[2023-03-13] MEDS: ASPIRIN enteric coated 81MG TABLET PO SCH (16:15)
[2023-03-13] MEDS: ceFAZolin INJECTION 2,000 MG in NS (IVPB) 50 ML 50 ML IV SCH (16:25)
[2023-03-13] MEDS: fentaNYL INJECTION 100 MCG/2 ML VIAL IVP PRN ×2 (17:27→20:02)
[2023-03-13] MEDS: CYCLOBENZAPRINE 10 MG TABLET PO PRN ×2 (17:34→22:58)
[2023-03-13] MEDS ORDERED: KETOROLAC INJ 30 MG/ML VIAL IVP ONE (19:00)
[2023-03-13] MEDS: CELECOXIB 100 MG CAPSULE PO SCH (20:02)
[2023-03-13] MEDS: DOCUSATE SODIUM 100 MG CAPSULE PO SCH (20:07)
[2023-03-13] MEDS ORDERED: ceFAZolin INJECTION 2,000 MG in NS (IVPB) 50 ML 50 ML IV SCH (21:00)
[2023-03-13] MEDS ORDERED: rOPINIRole 0.25 MG TABLET PO SCH (21:00)
[2023-03-14] MEDS: ceFAZolin INJECTION 2,000 MG in NS (IVPB) 50 ML 50 ML IV SCH (02:56)
[2023-03-14] MEDS: oxyCODONE IMMEDIATE RELEASE 5 MG TABLET PO PRN ×3 (02:58→11:06)
[2023-03-14 03:09] VITALS: BP 123/81
[2023-03-14 04:56] LABS: HEMOGLOBIN 13.2 g/dL (11.5-16.0)
[2023-03-14] MEDS ORDERED: THYROID (ARMOUR) 60 MG TABLET PO SCH (06:30)
[2023-03-14] MEDS ORDERED: THERAPEUTIC MULTIVITAMIN W/MINERALS TABLET PO SCH ×2 (07:00→09:00)
[2023-03-14] MEDS: DOCUSATE SODIUM 100 MG CAPSULE PO SCH (07:16)
[2023-03-14] MEDS: ASPIRIN enteric coated 81MG TABLET PO SCH (07:31)
[2023-03-14] MEDS: CELECOXIB 100 MG CAPSULE PO SCH (07:31)
[2023-03-14] MEDS: CYCLOBENZAPRINE 10 MG TABLET PO PRN (07:32)
[2023-03-14 07:38] VITALS: BP 126/88
--- NOTE | 2023-03-14 07:48 | Anesthesia-Regional Post-Op ---
Regional Patient Condition Mental Status: Alert, Oriented x3 Circulation: Same as Pre-Op Headache: Absent Sensation: Full Recovery Motor Block: Absent Post Op Complications Complications None Follow Up Care/Instructions Patient Instructions None needed. Anesthesia/Patient Condition Patient is doing well, no complaints, stable vital signs, no apparent adverse anesthesia problems. No complications reported per nursing. MAYTE SCHNEIDER CRNA Mar 14, 2023 07:48
[2023-03-14] MEDS ORDERED: LORATADINE 10 MG TABLET PO SCH (09:00)
[2023-03-14] MEDS ORDERED: THYROID PORK 240 MG PO SCH (09:00)
[2023-03-14] MEDS ORDERED: LEVOCETIRIZINE DIHYDROCHLORIDE 5 MG PO SCH (09:00)
[2023-03-14] MEDS: fentaNYL INJECTION 100 MCG/2 ML VIAL IVP PRN ×2 (10:46→12:51)
--- NOTE | 2023-03-14 11:16 | Short Stay Summary ---
Discharge Summary Hospital Course Final Diagnosis: Left Anterior Knee Pain/Patellar Maltracking Hospital Course Date of Admission: 03/13/23 Admission Diagnosis : Left Anterior Knee Pain/Patellar Maltracking Family Physician/Provider: Jayce Melendez MD Date of Discharge: 03/14/23 Discharge Diagnosis: [Left Anterior Knee Pain/Patellar Maltracking ] Hospital Course: [ ] Labs and Pending Lab Test: Laboratory Tests 03/14/23 04:45: Hemoglobin 13.2, Hematocrit 38 Microbiology 03/13/23 MRSA Screen - Final, Complete MRSA not isolated Home Meds Active Reported Ropinirole HCl 0.25 Mg Tablet 0.25 Mg PO HS Xyzal (Levocetirizine Dihydrochloride) 5 Mg Tablet 5 Mg PO DAILY [place] Thyroid (Thyroid,Pork) 240 Mg Tablet 240 Mg PO DAILY Assessment/Pt Instructions WBAT on left leg; use walker for assist. Dry dressing daily to incision site; d o not get incision wet. Outpatient therapy for motion/strengthening/gait training. F/U with Dr. Richy Conner ~2 weeks after surgery. Discharge Physical Examination Extremities: Other (L Knee: Dressing C/D/I, +DF of ankle, no s/s of DVT) Allergies: Coded Allergies: erythromycin base (Unverified Allergy, Unknown, Vomiting, 03/07/23) morphine (Unverified Allergy, Unknown, 03/15/22) Discharge Summary Date of Admission Date of Discharge RICHY CONNER MD Mar 14, 2023 11:16
[2023-03-14] MEDS ORDERED: ASPI-1238 PO (11:19)
[2023-03-14] MEDS ORDERED: OXYC10TA7 PO (11:19)
[2023-03-14] MEDS ORDERED: CYCL10TA25 PO (11:19)
[2023-03-14 11:30] VITALS: BP 131/86
--- NOTE | 2023-03-14 11:56 | Physical Therapy Evaluation ---
PT Evaluation-General Medical Diagnosis Admission Date March 13, 2023 Medical Diagnosis: left maltracking patella Onset Date: Mar 13, 2023 Therapy Diagnosis Therapy Diagnosis: debility Precautions Precautions/Isolations: Standard Precautions Weight Bear Status Right Lower Extremity: Right Full Weight Bearing Left Lower Extremity: Left Weight Bearing/Tolerated Referral Physician: Ubaldo Reason for Referral: Evaluation/Treatment Medical History Additional Medical History left TKR ~ 1 yr ago Current History s/p lateral release (patella realignment) Reviewed History: Yes Social History Current Living Status: Spouse Prior Prior Level of Function SCALE: Activities may be completed with or without assistive devices. 9-Abqagisloo-rvnwjym completes the activity by him/herself with no assistance from a helper. 5-Set-up or Clean-up Assistance-helper sets up or cleans up; patient completes activity. [place] assists only prior to or following the activity. 4-Supervision or Touching Assistance-helper provides verbal cues and/or touching/steadying and/or contact guard assistance as patient completes acti vity. Assistance may be provided throughout the activity or intermittently. 3-Partial/Moderate Assistance-helper does LESS THAN HALF the effort. [place] lifts, holds or supports trunk or limbs, but provides less than half the effort. 2-Substantial/Maximal Assistance-helper does MORE THAN HALF the effort. [place] lifts or holds trunk or limbs and provides more than half the effort. 6-Wmomcgrmt-iatlno does ALL the effort. Patient does none of the effort to complete the activity. Or, the assistance of 2 or more helpers is required for the patient to complete the activity. If activity was not attempted, code reason: 7-Patient Refused. 9-Not Applicable-not attempted and the patient did not perform the activity before the current illness, exacerbation or injury. 10-Not Attempted due to Environmental Limitations-(lack of equipment, weather restraints, etc.). 88-Not Attempted due to Medical Conditions or Safety Concerns. Bed Mobility: 6 Transfers (B,C,W/C): 6 Gait: 6 Stairs: 6 Indoor Mobility (Ambulation): Independent Stairs: Independent PT Evaluation-Current Subjective Patient and spouse agree to PT. Both voice concern on timing of PT session due to pain medication issued at 7 a.m. and this PT did not arrive until 1030. PT explained schedule and inability to be aware of all patient's medication schedule. Spouse appears annoyed. Pain Numeric Pain Scale: 10-Worst Possible Pain Location: Left Location Body Site: Knee Pain Description: Acute Objective Patient Orientation: Normal For Age ROM/Strength ROM Lower Extremities left knee flexion ~50 degrees AROM/10 degrees extension Strength Lower Extremities left LE not formally tested due to pain, however, appears 3-/5 grossly/right LE 5/5 Integumentary/Posture Bowel Incontinence: No Bladder Incontinence: No Posture WFL Neuromuscular (Tone, Coordination, Reflexes) grossly intact Sensory Vision: Functional Hearing: Functional Transfers Lying to Sitting/Side of Bed(Q: 4 Sit to Stand (QC): 5 Chair/Nrd-nv-Ybmoz Xfer(QC): 5 Gait Mode of Locomotion: Walk Anticipated Mode of Locomotion: Walk Walk 10 feet (QC): 5 Walk 50 ft with 2 Turns(QC): 5 Walk 150 ft (QC): 5 Distance: 200' Balance Sitting Static: Normal Sitting Dynamic: Normal Standing Static: Normal Standing Dynamic: Normal Treatment HEP issued with review. Patient performed 15 reps of the following: AP, QS, HS, SLR(AAROM), LAQ(AAROM) Assessment/Needs Patient tolerated treatment well and will dismiss to home after p.m. session. Patient tolerates minimal left quad activation due to pain. PT educated patient to actively perform and to "work through" the pain as tolerated. Rehab Potential: Fair PT Family Living Educator Goals Alf Goals PT Family Living Educator Goals Time Frame: Mar 15, 2023 Roll Left & Right (QC): 5 Sit to Lying (QC): 5 Lying-Sitting on Side/Bed(QC): 5 Sit to Stand (QC): 5 Chair/Cue-wa-Fopbg Xfer(QC): 5 Toilet Transfer (QC): 5 Walk 10 feet (QC): 5 Walk 50ft with 2 Turns (QC): 5 Walk 150 ft (QC): 5 PT Plan Problem List Problem List: Activity Tolerance, Functional Strength, Bed Mobility, ROM Treatment/Plan Treatment Plan: Continue Plan of Care Treatment Plan: Bed Mobility, Education, Functional Activity Diana, Functional Strength, Gait, Safety, Therapeutic Exercise, Transfers Treatment Duration: Mar 15, 2023 Frequency: 2 times per week Estimated Hrs Per Day: .5 hour per day Time Time In: 1030 Time Out: 1056 DATE: Mar 14, 2023 Total Billed Treatment Time: 26 Total Billed Treatment 1 visit EVM 10 min EX 16 min ALFREDITO THOMAS PT Mar 14, 2023 11:56
--- NOTE | 2023-03-14 14:07 | Physical Therapy Daily Note ---
PT Daily Note-Current Subjective Patient agrees to PT. Pain Section J - Health Conditions 1. Rarely or not at all 2. Occasionally 3. Frequently 4. Almost constantly 8. Unable to answer Pain Effect on Sleep: 1 Pain Interference with Therapy: 1 Pain Interference w/Day-to-Day: 1 Transfers SCALE: Activities may be completed with or without assistive devices. 8-Klouukchsb-gburfdq completes the activity by him/herself with no assistance from a helper. 5-Set-up or Clean-up Assistance-helper sets up or cleans up; patient completes activity. [place] assists only prior to or following the activity. 4-Supervision or Touching Assistance-helper provides verbal cues and/or touching/steadying and/or contact guard assistance as patient completes activity. Assistance may be provided throughout the activity or intermittently. 3-Partial/Moderate Assistance-helper does LESS THAN HALF the effort. [place] lifts, holds or supports trunk or limbs, but provides less than half the effort. 2-Substantial/Maximal Assistance-helper does MORE THAN HALF the effort. [place] lifts or holds trunk or limbs and provides more than half the effort. 3-Nfrilaxxg-yifuiq does ALL the effort. Patient does none of the effort to complete the activity. Or, the assistance of 2 or more helpers is required for the patient to complete the activity. If activity was not attempted, code reason: 7-Patient Refused. 9-Not Applicable-not attempted and the patient did not perform the activity before the current illness, exacerbation or injury. 10-Not Attempted due to Environmental Limitations-(lack of equipment, weather restraints, etc.). 88-Not Attempted due to Medical Conditions or Safety Concerns. Sit to Stand (QC): 6 Weight Bearing Right Lower Extremity: Right Full Weight Bearing Left Lower Extremity: Left Weight Bearing/Tolerated Gait Training Distance: 250' Walk 10 feet (QC): 6 Walk 50 ft with 2 Turns(QC): 6 Walk 150 ft (QC): 6 Gait Assistive Device: FWW slow, antalgic gait Exercises Supine Ex: Ankle pumps, Quad Set, Heel Slides, Straight leg raise Supine Reps: 15 Seated Therapy Exercises: Long arc quads Seated Reps: 10 Assessment Patient tolerated treatment well and will dismiss to home on this date with HEP. PT Market Intelligence Consultant Goals Assisted Goals PT Assisted Goals Time Frame: Mar 15, 2023 Roll Left & Right (QC): 5 Sit to Lying (QC): 5 Lying-Sitting on Side/Bed(QC): 5 Sit to Stand (QC): 5 Chair/Hhz-pu-Cybno Xfer(QC): 5 Toilet Transfer (QC): 5 Walk 10 feet (QC): 5 Walk 50ft with 2 Turns (QC): 5 Walk 150 ft (QC): 5 PT Plan Treatment/Plan Treatment Plan: Discontinue PT Treatment Plan: Bed Mobility, Education, Functional Activity Diana, Functional Strength, Gait, Safety, Therapeutic Exercise, Transfers Treatment Duration: Mar 15, 2023 Frequency: 2 times per week Estimated Hrs Per Day: .5 hour per day Time Time In: 1245 Time Out: 1303 DATE: Mar 14, 2023 Total Billed Treatment Time: 18 Total Billed Treatment 1 visit FA 18 min ALFREDITO THOMAS PT Mar 14, 2023 14:07
--- NOTE | 2023-03-14 14:15 | Occupational Therapy Eval ---
OT Evaluation-General/PLF Medical Diagnosis Admission Date Medical Diagnosis: left maltracking patella Onset Date: Mar 13, 2023 Therapy Diagnosis Therapy Diagnosis: weakness, pain Precautions Precautions/Isolations: Standard Precautions Weight Bear Status Weight Bearing Restriction: Weight Bearing/Tolerated Location Restriction: L LE Referral Physician: Ubaldo Referral Reason: Self Care, Evaluation/Treatment Medical History Current History Last surgery on knee February last Reviewed History: Yes Social History Home: Single Level Current Living Status: Spouse ADL-Prior Level of Function SCALE: Activities may be completed with or without assistive devices. 4-Gourssonwz-htpycny completes the activity by him/herself with no assistance from a helper. 5-Set-up or Clean-up Assistance-helper sets up or cleans up; patient completes activity. [place] assists only prior to or following the activity. 4-Supervision or Touching Assistance-helper provides verbal cues and/or touching/steadying and/or contact guard assistance as patient completes activity. Assistance may be provided throughout the activity or intermittently. 3-Partial/Moderate Assistance-helper does LESS THAN HALF the effort. [place] lifts, holds or supports trunk or limbs, but provides less than half the effort. 2-Substantial/Maximal Assistance-helper does MORE THAN HALF the effort. [place] l ifts or holds trunk or limbs and provides more than half the effort. 4-Rqrufpoza-ninpvo does ALL the effort. Patient does none of the effort to complete the activity. Or, the assistance of 2 or more helpers is required for the patient to complete the activity. If activity was not attempted, code reason: 7-Patient Refused. 9-Not Applicable-not attempted and the patient did not perform the activity before the current illness, exacerbation or injury. 10-Not Attempted due to Environmental Limitations-(lack of equipment, weather restraints, etc.). 88-Not Attempted due to Medical Conditions or Safety Concerns. Self Care: Independent Functional Cognition: Independent Drive Self: Yes OT Current Status Subjective agreeable to participate Pain Numeric Pain Scale: 7 Comment: request break through pain meds Mental Status/Objective Patient Orientation: Person, Time, Situation Current Upper Extremity ROM WNL Upper Extremity Coordination WNL Upper Extremity Sensation WNL Upper Extremity Strength 4/5 ADL-Treatment ADL-Current Dressed in own clothing Eating (QC): 6 Oral Hygiene (QC): 6 Shower/Bathe Self (QC): 7 Upper Body Dressing (QC): 6 Lower Body Dressing (QC): 6 (modified techniques) On/Off Footwear (QC): 6 Toileting Hygiene (QC): 6 Education OT Patient Education: Instructions to caregiver, Modified ADL techniques, Progress toward Goal/Update tx plan, Purpose of tx/functional activities, Reviewed precautions, Rehab process, Safety issues, Transfer techniques, Use of adapted equipment Teaching Recipient: Patient, Significant Other Teaching Methods: Demonstration, Discussion Response to Teaching: Return Demonstration OT Senior Living Goals Skin Lifter Bacon Goals 1=Demonstrate adherence to instructed precautions during ADL tasks. 2=Patient will verbalize/demonstrate understanding of assistive devic es/modifications for ADL. 3=Patient will improve strength/tolerance for activity to enable patient to perform ADL's. OT Education/Plan Problem List/Assessment Assessment: No Skilled OT Needs ID'd Discharge Recommendations Plan/Recommendations: Discontinue OT Treatment Plan/Plan of Care Treatment,Training & Education: Yes Patient would benefit from OT for education, treatment and training to promote independence in ADL's, mobility, safety and/or upper extremity function for ADL's. Plan of Care: OTHER (EVAL only) Treatment Duration: Mar 14, 2023 Frequency: 1 time per week Estimated Hrs Per Day: .25 hour per day Agreement: Yes Rehab Potential: Good Time Start Time: 10:30 Stop Time: 10:41 DATE: Mar 14, 2023 Total Time Billed (hr/min): 11 Billed Treatment Time EVM 11 min TRACY PEREZ OT Mar 14, 2023 14:15
[2023-03-14 14:33] VITALS: BP 131/86
== END 2023-03-14 14:35 | disposition home or self-care (01) ==
LOC: SDC 08:46 → 4TH 12:50 → SDC 03-14 14:35
PROVIDERS: ATTEND Orthopaedic Surgery
DX: M22.8X9 Other disorders of patella, unspecified knee (principal); M25.562 Pain in left knee; E66.9 Obesity, unspecified; Z68.39 Body mass index [BMI] 39.0-39.9, adult; Z96.652 Presence of left artificial knee joint
CPT/HCPCS: 27438; 73560; 85014; 85018; 87081; 94664; 97110; 97162; 97166; 97530; C1776; 36415

== ENCOUNTER → 2023-03-28 | Outpatient (CLI) | payer OTHER ==
[~2023-03-28] MED LIST changes: +OXYC10TA7 PO
== END ==
LOC: ORTHO 09:23
PROVIDERS: ATTEND Orthopaedic Surgery
DX: Z47.89 Encounter for other orthopedic aftercare (principal)

== ENCOUNTER → 2023-04-13 | Outpatient (CLI) | payer OTHER ==
[~2023-04-13] MED LIST changes: +HOLD METFORMIN - RECEIVED CONTRAST 20 ML VIAL IV SCH; +IOHEXOL 350 MG/ML 100 ML (OMNIPAQUE 350) VIAL IV ONE; +NS 100 ML (IVPB) BAG IV ONE
--- NOTE | 2023-04-13 09:21 | Diagnostic Imaging Report ---
PROCEDURE: CT chest, abdomen, and pelvis with contrast. TECHNIQUE: Multiple contiguous axial images were obtained through the chest, abdomen, and pelvis after the administration of intravenous contrast. Auto Exposure Controls were utilized during the CT exam to meet ALARA standards for radiation dose reduction. INDICATION: Newly diagnosed breast carcinoma. No prior studies are available for comparison. CT CHEST: There is a breast nodule with calcification in the retroareolar aspect of left breast. An additional slightly irregular density in the lateral portion left breast is also noted with similar calcifications. Please correlate with mammography. There is an enlarged lymph node in the left axilla measuring 3.3 x 2.1 cm concerning for a metastatic node. The right axilla is unremarkable. No internal mammary lymphadenopathy is detected. No mediastinal or hilar lymphadenopathy is detected. There is no pericardial or pleural fluid identified. No pulmonary infiltrates, nodules or masses are detected. Bony structures are nonacute. CT ABDOMEN AND PELVIS: No focal liver mass is detected. Gallbladder is surgically absent. There is no biliary ductal dilatation. Pancreas and spleen are unremarkable. No adrenal mass is identified. Kidneys are unremarkable. No calculi are seen. Aorta is nonaneurysmal. No central retroperitoneal or mesenteric lymphadenopathy is identified. No pelvic lymphadenopathy is identified. Bowel loops are nonobstructed. There is no ascites. Bladder is unremarkable. Uterus is surgically absent. No definite osteolytic or osteoblastic lesions are detected. IMPRESSION: 1. Left breast nodules, perhaps representing patient's known breast malignancy. There is an enlarged lymph node in the left axilla, concerning for metastatic lymph node. Percutaneous biopsy could be performed if not already performed. 2. No evidence of mediastinal or hilar lymphadenopathy or pulmonary metastatic disease. 3. No evidence of abdominal or pelvic lymphadenopathy or metastatic disease. Dictated by: Dictated on workstation # [id number]
--- NOTE | 2023-04-13 13:39 | Diagnostic Imaging Report ---
INDICATION: Newly diagnosed breast carcinoma. TECHNIQUE: Patient was administered 26.4 mCi technetium-99m MDP intravenously, and whole body imaging was performed after a three-hour delay. No prior bone scans are available for comparison. FINDINGS: There is normal uptake of activity by the axial and appendicular skeleton. There is uptake by the kidneys with excretion into the urinary bladder. Vague uptake involving the anterior left-sided ribs, particularly in the left anterior approximately fourth, seventh, and eighth ribs is noted. This is near the costochondral junction and could be post-traumatic or inflammatory. No other suspicious foci of trace attenuation are identified. IMPRESSION: There is vague uptake in left-sided anterior ribs, as described. Continued follow-up could be performed. No other suspicious foci are detected. Dictated by: Dictated on workstation # [id number]
== END ==
LOC: CARD 07:25
PROVIDERS: ATTEND Surgery
DX: C50.412 Malignant neoplasm of upper-outer quadrant of left female breast (principal); C77.3 Secondary and unspecified malignant neoplasm of axilla and upper limb lymph nodes
CPT/HCPCS: 71260; 74177; 78306; A9503

== ENCOUNTER → 2023-04-18 | Outpatient (CLI) | payer OTHER ==
[~2023-04-18] MED LIST changes: -HOLD METFORMIN - RECEIVED CONTRAST 20 ML VIAL IV SCH; -IOHEXOL 350 MG/ML 100 ML (OMNIPAQUE 350) VIAL IV ONE; -NS 100 ML (IVPB) BAG IV ONE
== END ==
LOC: ORTHO 09:11
PROVIDERS: ATTEND Orthopaedic Surgery
DX: C50.412 Malignant neoplasm of upper-outer quadrant of left female breast (principal); Z98.890 Other specified postprocedural states; Z90.49 Acquired absence of other specified parts of digestive tract; Z90.710 Acquired absence of both cervix and uterus

== ENCOUNTER 2023-04-24 09:53 | Outpatient (RCR) | payer OTHER ==
[2023-04-14 12:06] LABS: BASOPHILS # (AUTO) 0.1 10^3/uL (0.0-0.1); BASOPHILS % (AUTO) 1 % (0-10); EOSINOPHILS # (AUTO) 0.2 10^3/uL (0.0-0.3); EOSINOPHILS % (AUTO) 3 % (0-10); HEMATOCRIT 41 % (35-52); HEMOGLOBIN 13.3 g/dL (11.5-16.0); LYMPHOCYTES % (AUTO) 34 % (12-44); MEAN CORPUSCULAR HEMOGLOBIN 30 pg (25-34); MEAN CORPUSCULAR HGB CONC 33 g/dL (32-36); MEAN CORPUSCULAR VOLUME 91 fL (80-99); MEAN PLATELET VOLUME 9.8 fL (9.0-12.2); MONOCYTES # (AUTO) 0.3 10^3/uL (0.0-1.0); MONOCYTES % (AUTO) 6 % (0-12); NEUTROPHILS # (AUTO) 3.2 10^3/uL (1.8-7.8); NEUTROPHILS % (AUTO) 56 % (42-75); PLATELET COUNT 241 10^3/uL (130-400); WHITE BLOOD COUNT 5.8 10^3/uL (4.3-11.0)
[2023-04-14 12:11] LABS: ALBUMIN 4.3 GM/DL (3.2-4.5); BILIRUBIN,TOTAL 0.5 MG/DL (0.1-1.0); CALCIUM 8.7 MG/DL (8.5-10.1); CREATININE SERUM 0.73 MG/DL (0.60-1.30)
[~2023-04-24] VITALS: Ht 170.2 cm; Wt 114.3 kg
[2023-04-26] MEDS ORDERED: PALONOSETRON HCL 0.25 MG, dexAMETHasone sodium phosphate 10 MG in NS (IVPB) 50 ML 50 ML IV SCH (13:00)
[2023-04-26] MEDS ORDERED: NS IV SCH ×2 (13:00→13:15)
[2023-04-26] MEDS ORDERED: diphenhydrAMINE 25 MG TABLET PO SCH (13:00)
[2023-04-26] MEDS ORDERED: NS IV 1000 ML (CANCER CTR) IV SCH (13:00)
[2023-04-26] MEDS ORDERED: FOSAPREPITANT (CANCER CENTER) 150 MG in NS (IVPB) CANCER CENTER ONLY 150 ML IV SCH (13:00)
[2023-04-26] MEDS ORDERED: FAMOTIDINE INJ 20MG/2ML VIAL IV SCH (13:00)
[2023-04-26] MEDS ORDERED: PERTUZUMAB IV SCH (13:00)
[2023-04-26] MEDS ORDERED: HEParin (CENTRAL IV FLUSH) 500 UNIT/5 ML SYR IV PRN (13:00)
[2023-04-26] MEDS ORDERED: TRASTUZUMAB PKRB IV SCH (13:15)
[2023-04-26] MEDS ORDERED: CARBOPLATIN IV SCH (13:15)
[2023-04-26] MEDS ORDERED: NORMAL SALINE IV SCH (13:15)
[2023-04-26] MEDS ORDERED: DOCETAXEL IV SCH (13:15)
[2023-04-26] MEDS ORDERED: D5W IV SCH (13:15)
== END 2023-04-27 | disposition home or self-care (01) ==
LOC: ONC 09:53
PROVIDERS: ATTEND Internal Medicine Hematology & Oncology
DX: C50.919 Malignant neoplasm of unspecified site of unspecified female breast (principal)
CPT/HCPCS: 80053; 85025; 86300; 99214

== ENCOUNTER → 2023-04-24 | Outpatient (CLI) | payer OTHER | LOC: CARD 09:12 | PROVIDERS: ATTEND Internal Medicine Hematology & Oncology | DX: C50.919 Malignant neoplasm of unspecified site of unspecified female breast (principal); I34.0 Nonrheumatic mitral (valve) insufficiency; I51.7 Cardiomegaly | CPT/HCPCS: 93306 ==

== ENCOUNTER 2023-04-26 05:28 | Outpatient (CLI) | payer OTHER ==
[~2023-04-26] VITALS: Ht 170.2 cm; Wt 118.8 kg
== END 2023-04-27 09:19 | disposition home or self-care (01) ==
LOC: PREOP 05:28
PROVIDERS: ATTEND Surgery
DX: Z01.818 Encounter for other preprocedural examination (principal)

== ENCOUNTER 2023-04-28 07:23 | Day surgery (SDC) | payer OTHER ==
[~2023-04-28] VITALS: Ht 170.2 cm; Wt 118.8 kg
[2023-04-28] VITALS (7 sets, daily range): BP systolic 125–146; BP diastolic 79–91
[2023-04-28] MEDS ORDERED: ceFAZolin INJECTION 2,000 MG in NS (IVPB) 50 ML 50 ML IV ONE (08:00)
[2023-04-28] MEDS ORDERED: LACTATED RINGERS 1,000 ML 1,000 ML IV PRN (08:00)
[2023-04-28] MEDS ORDERED: MIDAZOLAM INJ 2 MG/2 ML VIAL ONE (08:05)
[2023-04-28] MEDS ORDERED: fentaNYL INJECTION 100 MCG/2 ML VIAL ONE ×2 (08:06→10:00)
[2023-04-28] MEDS ORDERED: LIDOCAINE 2% w/EPI 1:100,000 20 ML VIAL ONE (08:39)
[2023-04-28] MEDS ORDERED: HEParin (CENTRAL IV FLUSH) 500 UNIT/5 ML SYR ONE (08:39)
[2023-04-28] MEDS ORDERED: 0.9% SODIUM CHLORIDE PF INJ 20 ML VIAL ONE (08:39)
--- NOTE | 2023-04-28 09:11 | Progress Note-Pre Operative ---
Pre-Operative Progress Note Date H&P Reviewed: Apr 28, 2023 Time H&P Reviewed: 09:04 History & Physical: H&P Reviewed, Patient Examed, No changes noted Pre-Operative Diagnosis: Left breast CA, Venous insufficiency BEAU WALDROP DO Apr 28, 2023 09:11
--- NOTE | 2023-04-28 09:52 | Progress Note-Post Operative ---
Post-Operative Progess Note Surgeon (s)/Air Pumper (s) Surgeon BEAU WALDROP DO Air Pumper: none Pre-Operative Diagnosis Left breast CA, Venous insufficiency Post-Operative Diagnosis same Procedure & Operative Findings Date of Procedure 04/28/23 Procedure Performed/Findings PROCEDURE: Rachelle-Cath Placement Right side The patient was taken to the operating suite, was prepped and draped in the sterile fashion. A surgical pause was performed. Local anesthetic was infiltrated at the clavicle and along the tract to the right anterior chest, where more local was placed so the pocket could be created. Using an 18 gauge finder needle with negative inspiration the right subclavian vein was accessed on the first attempt and dark nonpulsatile blood was withdrawn. The wire was inserted and fluoroscopy assured proper placement. The needle was removed. The regular wire was inserted and fluoroscopy assured proper placement. The wire was then secured. A #11 blade scalpel was used to make an incision over the right chest and along guidewire. Cautery was used to dissect down to the pectoral fascia. A pocket was created with blunt dissection. The dilator sheath was then advanced over the wire under fluoroscopy and the dilator and wire were removed. The [place] catheter was inserted through the sheath and the sheath was then removed. The [place] wire was removed. The catheter was then tunneled to the right chest pocket. Fluoroscopy was used to cut to length and this was then attached to the port which was then placed within the pocket. The port was then accessed without difficulty. It was then flushed with saline and then heparin. The subcutaneous tissues were then reapproximated using 3-0 Vicryl. Finally the skin was closed with 4-0 undyed monocryl, 3 interrupted sutures. The areas were then washed and dried. Skin Affix was placed over incision. The insertion point of the neck Skin Affix was placed over the incision. The patient tolerated the procedure well without complication and was taken to recovery room in stable condition. Anesthesia Type IV sedation by THERMIT WELDING MACHINE OPERATOR Estimated Blood Loss Estimated blood loss (mL): scant Specimens/Packing Specimens Removed none BEAU WALDROP DO Apr 28, 2023 09:52
--- NOTE | 2023-04-28 09:53 | Discharge Inst-Surgical ---
Discharge Inst-Surgical Depart Medication/Instructions New, Converted or Re-Newed RX: Other (Use home meds) Patient Instructions Follow up Appt: Make appointment for 1 week. [phone] Instructions: No lifting greater than 20 pounds. No strenuous activity. May shower in 24 hours, no tub bath or soaking. Use incentive spirometer at home as directed. No Smoking Skin/Wound Care: May remove bandages in am. You need to leave the Dermabond on incision it will fall off on it's own. Symptoms to Report: Appetite Changes, Extremity Discoloration, Numbness/Tingling, Swelling Increased, Bleeding Excessive, Eyesight Changes, Pain Increased, Urine Color Change, Constipation(Persistent), Fever over 101 degree F, Pain/Pressure in chest, Urinating Difficulty, Cough Up/Vomit Blood, Heart Beat Irreg/Pounding, Pain/Pressure in jaw, Cramps in feet or legs, Lightheadedness, Pain/Pressure in shoulder, Diarrhea(Persistent), Memory Changes Suddenly, Questions/Concerns, Weight gain consecutive days, Dizziness/Fainting, Nausea/Vomiting, Shortness of Breath, Weight gain over 2 pounds If questions or concerns contact your physician Or seek help at emergency department. Activity Activity as Tolerated: Yes Activity Instructions: Avoid Stress to Incision Driving Instructions: No Driving/Refer to Dr. Roberts Discharge Diet: No Restrictions Diet After 24 Hours: Clear Liquid if Nauseous If Any Problems/Questions/Issu: Contact Your Physician, Go to Emergency Room Skin/Wound Care Infection Signs and Symptoms: Increased Redness, Foul Odor of Wound, Increased Drainage, Skin Itchy or Has a Rash, Increased Swelling, Temperature Above 101 F Bathing Instructions: Shower Stitches/Marisa/Dermabond Dis: BEAU Rothman DO Apr 28, 2023 09:53
--- NOTE | 2023-04-28 09:58 | Anesthesia-General Post-Op ---
MAC Patient Condition Mental Status/LOC: Same as Preop Cardiovascular: Satisfactory Nausea/Vomiting: Absent Respiratory: Satisfactory Pain: Controlled Complications: Absent Post Op Complications Complications None Follow Up Care/Instructions Patient Instructions None needed. Anesthesiology Discharge Order Discharge Order Patient is doing well, no complaints, stable vital signs, no apparent adverse anesthesia problems. No complications reported per nursing. LINDSEY DE LA O CRNA Apr 28, 2023 09:58
[2023-04-28] MEDS ORDERED: ONDANSETRON INJECTION 4 MG/2 ML (SDV) IVP PRN (10:00)
[2023-04-28] MEDS ORDERED: fentaNYL INJECTION 100 MCG/2 ML VIAL IVP ONE (10:00)
[2023-04-28] MEDS ORDERED: MEPERIDINE INJ 50 MG/ML VIAL IVP ONE (10:00)
--- NOTE | 2023-04-28 13:43 | Diagnostic Imaging Report ---
Indication: Port-A-Cath placement. Fluoroscopic guidance. Comparison: None Total fluoroscopy time: 6 seconds Total number fluoroscopic images saved: 2 Findings: Fluoroscopic guidance was provided during Port-A-Cath placement. Images provided show right subclavian approach. Central tip is not well visualized. Exam is suboptimal to assess for pneumothorax given fluoroscopic modality. Please note, interpreting radiologist was not present during the procedure. Impression: 1. Thorascopic guidance provided during Port-A-Cath placement. Dictated by: Dictated on workstation # [id number]
== END 2023-04-28 11:05 | disposition home or self-care (01) ==
LOC: SDC 07:23
PROVIDERS: ATTEND Surgery
DX: I87.2 Venous insufficiency (chronic) (peripheral) (principal); C50.912 Malignant neoplasm of unspecified site of left female breast; G47.33 Obstructive sleep apnea (adult) (pediatric)
CPT/HCPCS: 36561; 76000; 87081; C1788